=== PATIENT | male | born 1960 | race Asian ===

== ENCOUNTER 2016-12-31 11:09 | Inpatient (IN) | payer MEDICAID ==
[~2016-12-31] VITALS: Ht 165.1 cm; Wt 68.0 kg
[~2016-12-31 11:09] MED LIST: ACETAMINOPHEN-1 EAC1 ORAL; ASPIR 8181 MG ORAL; CIPRO500 MG PO; COLACE100 MG ORAL; FUROSEMIDE20 M1 ORAL; GLIMEPIRIDE1 MG ORAL; IRON325 M2 PO; LIPITOR10 MG ORAL; METOPROLOL TART50 MG ORAL; METRONIDAZOLE500 MG ORAL
[2016-12-31 11:21] VITALS: BP 107/72
[2016-12-31] MEDS ORDERED: DOCUSATE SODIU100 MG ORAL (11:41)
[2016-12-31] MEDS ORDERED: FERROUS SULFAT325 MG ORAL (11:43)
[2016-12-31 11:45] LABS: BASOPHILS % (AUTO) 0.5 % (0.0-2.0); EOSINOPHILS % (AUTO) 0.2 % (0.0-3.0); MEAN CORPUSCULAR HGB CONC 33.6 G/DL (32.0-36.0); MEAN CORPUSCULAR VOLUME 89 FL (80-99); MEAN PLATELET VOLUME 6.2 FL (6.5-10.1); NEUTROPHILS % (AUTO) 75.2 % (45.0-75.0); PLATELET COUNT 189 K/UL (150-450); RED BLOOD COUNT 4.19 M/UL (4.70-6.10); RED CELL DISTRIBUTION WIDTH 11.6 % (11.6-14.8); WHITE BLOOD COUNT 12.3 K/UL (4.8-10.8)
[2016-12-31] MEDS ORDERED: Oxycodone/Acetaminophen 5-325 ORAL ONE (11:45)
[2016-12-31] MEDS ORDERED: LISINOPRIL20 MG ORAL (11:47)
[2016-12-31] MEDS ORDERED: METOPROLOL SUCC50 MG ORAL (11:47)
[2016-12-31] MEDS ORDERED: FUROSEMIDE40 MG ORAL (11:47)
--- NOTE | 2016-12-31 11:47 | Emergency Room Report ---
History of Present Illness General Chief Complaint: Chest Pain Source: Patient, Family Member, EMS Present Illness HPI 56YOM with 1 week right sided pleuritic chest pain, worse with breathing. Assoc with cough and subjective chills recently. Pain only on breathing, not at rest. Doesnt radiate. History of CABG a few years ago, CHF. Took lasix/ spironolactone earlier today. Takes ASA daily. Allergies: Coded Allergies: No Known Allergies (Unverified , 09/03/15) Patient History Past Medical History: CAD, CHF Past Surgical History: CABG Pertinent Family History: none Social History: Denies: alcohol use, drug use, smoking Immunizations: UTD Reviewed Nursing Documentation: PMH: Agreed, PSxH: Agreed Nursing Documentation-PMH Past Medical History: No History, Except For Hx Cardiac Problems: Yes - CABG 08/31/2015 Hx Hypertension: Yes Hx Diabetes: Yes Review of Systems All Other Systems: negative except mentioned in HPI Physical Exam Vital Signs Date Time Temp Pulse Resp B/P Pulse Ox O2 Delivery O2 Flow Rate FiO2 12/31/16 11:08 98.4 100 22 107/72 98 Room Air [id number] EP Interpretation: reviewed, abnormal General Appearance: normal inspection, well appearing, no apparent distress, alert, GCS 15, non-toxic Head: normocephalic, atraumatic Eyes: bilateral eye EOMI, bilateral eye PERRL ENT: normal ENT inspection, hearing grossly normal, normal voice Neck: normal inspection, full range of motion, supple, no bony tend Respiratory: normal inspection, lungs clear, normal breath sounds, no respiratory distress, no retraction, no wheezing, crackles, other - Significant ttp to right chest Cardiovascular #1: regular rate, rhythm, no edema Gastrointestinal: normal inspection, normal bowel sounds, soft, no guarding, no hernia, other - + RUQ and epigastric ttp. with guarding. No rebound Genitourinary: no CVA tenderness Musculoskeletal: normal inspection, back normal, normal range of motion, Oanh' s Sign negative Neurologic: normal inspection, alert, responsive, speech normal Psychiatric: normal inspection, judgement/insight normal, mood/affect normal Skin: normal inspection Lymphatic: normal inspection Medical Decision Making Diagnostic Impression: Primary Impression: RUQ pain ER Course 56 YO M with "right sided pain" is actually more RUQ and epigastric pain vs chest pain/pleurisy +RUQ ttp with guarding Leuks: 12k. Elevated bili, LFTs, lipase Possible stone in pancreatic head Ultrasound pending Empiric Abx given Blood Cx pending NPO Analgesia provided Endorsed to Dr Osuna for med/surg bed at 1254pm Endorsed to Dr Fsih at 2pm to followup Abd sono and if acute cholecystitis to consult surgery as necessary EKG Diagnostic Results Rate: normal Rhythm: NSR ST Segments: no acute changes ASA given to the pt in ED: No Rhythm Strip Diag. Results EP Interpretation: yes Rate: 96 Rhythm: NSR, no PVC's, no ectopy Chest X-Ray Diagnostic Results EP Interpretation: Yes Findings: no consolidation, no effusion, no pneumothorax, other - +cardiomegaly Number of Views: 1 Last Vital Signs Date Time Temp Pulse Resp B/P Pulse Ox O2 Delivery O2 Flow Rate FiO2 12/31/16 11:21 100 22 Room Air 12/31/16 11:21 98.4 107/72 98 Status: improved Disposition: ADMITTED INPATIENT Condition: Serious Referrals: NON PHYSICIAN (PCP) NOEMY DESAI M.D. Dec 31, 2016 11:47
[2016-12-31] MEDS ORDERED: SPIRONOLACTONE25 MG ORAL (11:48)
[2016-12-31] MEDS ORDERED: FLAGYL500 MG ORAL (11:51)
[2016-12-31] MEDS ORDERED: GABAPENTIN300 MG ORAL (11:53)
[2016-12-31] MEDS ORDERED: LANTUS SOL100 UNIT/1 SUBQ (11:56)
[2016-12-31] MEDS ORDERED: Famotidine 20 MG/ 2ML VIAL IVP ONE (12:00)
[2016-12-31] MEDS ORDERED: TYLENOL325 MG ORAL (12:01)
[2016-12-31] MEDS ORDERED: PRED FORTE1 ML RIGHT EYE (12:05)
[2016-12-31] MEDS ORDERED: OMEPRAZOLE20 M2 ORAL (12:06)
--- NOTE | 2016-12-31 12:08 | Diagnostic Imaging Report ---
Indication: PAIN Technique: One view of the chest Comparison: 09/03/2015 Findings: Inspiration is suboptimal. There is atelectasis at the left lung base. Lungs and pleural space are otherwise clear. Previously demonstrated large left pleural effusion is no longer evident Impression: No acute process
[2016-12-31] MEDS ORDERED: cefTRIAXone 1 GM in NS 55 ML IVPB ONE (12:15)
[2016-12-31] MEDS ORDERED: Azithromycin 500 MG in NS 275 ML IV ONE (12:15)
[2016-12-31] MEDS ORDERED: Azithromycin Inj IV ONE (12:20)
[2016-12-31 12:29] VITALS: BP 130/79
[2016-12-31 12:31] LABS: TROPONIN I < 0.30 ng/mL (<=0.30)
[2016-12-31 12:35] LABS: ALANINE AMINOTRANSFERASE 134 U/L (3-41); ALBUMIN/GLOBULIN RATIO 0.9 (1.0-2.7); ANION GAP 19 (5-15); ASPARTATE AMINO TRANSFERASE 299 U/L (5-40); CARBON DIOXIDE 21 mEQ/L (20-30); CHLORIDE 95 mEQ/L (98-107); CREATININE 2.6 mg/dL (0.7-1.2); GLOMERULAR FILTRATION RATE 25.7 mL/min (>60); HEMOLYSIS 2; SODIUM 135 mEQ/L (135-145); TOTAL PROTEIN 7.4 g/dL (6.6-8.7)
[2016-12-31 12:45] LABS: CKMB < 1.5 ng/mL (< 6.7)
[2016-12-31 13:30] VITALS: BP 124/74
[2016-12-31 14:27] VITALS: BP 142/92
[2016-12-31 15:30] VITALS: BP 120/80
[2016-12-31 16:30] VITALS: BP 133/77
[2016-12-31] MEDS ORDERED: Mylanta II UD 30ml ORAL PRN (16:45)
[2016-12-31] MEDS ORDERED: Promethazine/Codeine 5ml UD ORAL PRN (16:45)
[2016-12-31] MEDS ORDERED: Morphine Sulfate 2mg/ml Inj IVP PRN (16:45)
[2016-12-31] MEDS ORDERED: Miralax 17gm pkt ORAL PRN (16:45)
[2016-12-31] MEDS ORDERED: Nitroglycerin Subl 0.4mg tab (Bottle Of 25) SL PRN (16:45)
[2016-12-31] MEDS ORDERED: Zosyn 3.375gm inj ONE (17:57)
[2016-12-31] MEDS: Furosemide 40mg tab ORAL SCH (18:05)
[2016-12-31] MEDS: D5 1/2NS 1,000 ML IV SCH (18:05)
[2016-12-31] MEDS: Piperacillin/Tazobactam 3.375 GM in NS 110 ML IVPB SCH (18:06)
[2016-12-31] MEDS: metroNIDAZOLE 500mg tab ORAL SCH (18:06)
[2016-12-31 21:34] LABS: PHOSPHORUS 3.6 mg/dL (2.5-4.8); URIC ACID 13.9 mg/dL (3.0-7.5)
--- NOTE | 2016-12-31 21:36 | History and Physical ---
History of Present Illness General Reason for Hospitalization: Chest Pain Present Illness Allergies: Coded Allergies: No Known Allergies (Unverified , 09/03/15) Medication History Scheduled Aspirin* (Aspir 81*), 81 MG ORAL DAILY, (Reported) Atorvastatin Calcium* (Lipitor*), 10 MG ORAL DAILY, (Reported) Ciprofloxacin* (Cipro*), 500 MG PO BID, (Reported) Ferrous Sulfate* (Ferrous Sulfate*), 325 MG ORAL TWICE A DAY, (Reported) Furosemide* (Lasix*), 40 MG ORAL TWICE A DAY, (Reported) Gabapentin* (Gabapentin*), 300 MG ORAL BID, (Reported) Insulin Glargine (Lantus), 20 UNITS SUBQ EVERY MORNING, (Reported) Lisinopril (Lisinopril*), 20 MG ORAL DAILY, (Reported) Metoprolol Succinate* (Metoprolol Succinate*), 50 MG ORAL DAILY, (Reported) Metronidazole* (Flagyl*), 500 MG ORAL EVERY 8 HOURS, (Reported) Omeprazole (Omeprazole), 20 MG ORAL DAILY, (Reported) Prednisolone Acetate (Pred Forte), 1 DRP RIGHT EYE QID, (Reported) Spironolactone* (Aldactone*), 25 MG ORAL DAILY, (Reported) Scheduled PRN Acetaminophen (Tylenol), 650 MG ORAL Q6H PRN for For Pain, (Reported) Docusate Sodium* (Docusate Sodium*), 100 MG ORAL DAILY PRN for Constipation, ( Reported) Discontinued Medications Acetaminophen With Codeine (T#3) (Tylenol #3 Tab*), 1 TAB ORAL Q4H PRN for For Pain, (Reported) Discontinued Reason: Therapy completed Furosemide* (Lasix*), 20 MG ORAL DAILY, (Reported) Discontinued Reason: Prescription changed Glimepiride* (Glimepiride*), 1 MG ORAL BEFORE BREAKFAST, (Reported) Discontinued Reason: Pt stopped taking med Metoprolol Tartrate* (Metoprolol Tartrate*), 50 MG ORAL DAILY, (Reported) Discontinued Reason: Medication dose changed Patient History Healthcare decision maker Resuscitation status Advanced Directive on File Physical Exam Last 24 Hour Vital Signs Date Time Temp Pulse Resp B/P Pulse Ox O2 Delivery O2 Flow Rate FiO2 12/31/16 17:00 98.4 76 16 133/77 96 Room Air 12/31/16 16:30 76 16 133/77 96 Room Air 12/31/16 15:30 78 21 120/80 96 Room Air 12/31/16 14:27 85 20 142/92 100 Room Air 12/31/16 13:30 84 18 124/74 99 Room Air 12/31/16 12:29 87 21 130/79 98 Room Air 12/31/16 12:27 98.4 12/31/16 11:21 100 22 Room Air 12/31/16 11:21 98.4 100 22 107/72 98 Room Air 12/31/16 11:08 98.4 100 22 107/72 98 Room Air Laboratory Tests Test 12/31/16 11:15 12/31/16 12:00 12/31/16 20:30 White Blood Count 12.3 K/UL (4.8-10.8) H Red Blood Count 4.19 M/UL (4.70-6.10) L Hemoglobin 12.6 G/DL (14.2-18.0) L Hematocrit 37.4 % (42.0-52.0) L Mean Corpuscular Volume 89 FL (80-99) Mean Corpuscular Hemoglobin 30.0 PG (27.0-31.0) Mean Corpuscular Hemoglobin Concent 33.6 G/DL (32.0-36.0) Red Cell Distribution Width 11.6 % (11.6-14.8) Platelet Count 189 K/UL (150-450) Mean Platelet Volume 6.2 FL (6.5-10.1) L Neutrophils (%) (Auto) 75.2 % (45.0-75.0) H Lymphocytes (%) (Auto) 13.0 % (20.0-45.0) L Monocytes (%) (Auto) 11.0 % (1.0-10.0) H Eosinophils (%) (Auto) 0.2 % (0.0-3.0) Basophils (%) (Auto) 0.5 % (0.0-2.0) Sodium Level 135 mEQ/L (135-145) Potassium Level 4.0 mEQ/L (3.4-4.9) Chloride Level 95 mEQ/L (98-107) L Carbon Dioxide Level 21 mEQ/L (20-30) Anion Gap 19 (5-15) H Blood Urea Nitrogen 52 mg/dL (7-23) H Creatinine 2.6 mg/dL (0.7-1.2) H Estimat Glomerular Filtration Rate 25.7 mL/min (>60) Glucose Level 219 mg/dL (74-106) H Calcium Level 9.0 mg/dL (8.6-10.2) Total Bilirubin 1.5 mg/dL (0.0-1.2) H Direct Bilirubin 1.0 mg/dL (0.1-0.3) H Aspartate Amino Transf (AST/SGOT) 299 U/L (5-40) H Alanine Aminotransferase (ALT/SGPT) 134 U/L (3-41) H Alkaline Phosphatase 240 U/L (40-129) H Total Creatine Kinase 40 U/L (38-174) Pending Creatine Kinase MB < 1.5 ng/mL (< 6.7) Creatine Kinase MB Relative Index Troponin I < 0.30 ng/mL (<=0.30) Pro-B-Type Natriuretic Peptide 545 pg/mL (0-125) H Total Protein 7.4 g/dL (6.6-8.7) Albumin 3.6 g/dL (3.5-5.2) Globulin 3.8 g/dL Albumin/Globulin Ratio 0.9 (1.0-2.7) L Lipase 61 U/L (< 60) H Plasma/Serum Osmolality Pending Uric Acid Pending Phosphorus Level Pending Magnesium Level Pending Thyroid Stimulating Hormone (TSH) Pending Free Thyroxine Pending Free Triiodothyronine Pending Cortisol Pending Height (Feet): 5 Height (Inches): 5.00 Weight (Pounds): 150 Medications Current Medications Medications (Trade) Dose Ordered Sig/Aleksandr Route PRN Reason Start Time Stop Time Status Last Admin Dose Admin Acetaminophen (Tylenol) 650 mg Q4H PRN ORAL fever 12/31/16 16:45 01/30/17 16:44 Al Hydroxide/Mg Hydroxide (Mylanta II) 30 ml Q6H PRN ORAL dyspepsia 12/31/16 16:45 01/30/17 16:44 Aspirin (Ecotrin) 81 mg DAILY ORAL 01/01/17 09:00 01/31/17 08:59 UNV Atorvastatin Calcium (Lipitor) 10 mg DAILY ORAL 01/01/17 09:00 01/31/17 08:59 UNV Dextrose STAT PRN IV Hypoglycemia 12/31/16 16:45 01/30/17 16:44 Dextrose/Sodium Chloride (D5 0.45% NS) 1,000 ml @ 75 mls/hr [id number] IV 12/31/16 18:00 01/30/17 17:59 12/31/16 18:05 Diphenhydramine HCl (Benadryl) 25 mg Q6H PRN ORAL Itching/Pruritis 12/31/16 16:45 01/30/17 16:44 Furosemide (Lasix) 40 mg TWICE A DAY ORAL 12/31/16 18:00 01/30/17 17:59 12/31/16 18:05 Gabapentin (Neurontin) 300 mg BID ORAL 01/01/17 09:00 01/31/17 08:59 UNV Heparin Sodium (Porcine) (Heparin 5000 units/ml) 5,000 units EVERY 12 HOURS SUBQ 12/31/16 21:00 01/30/17 20:59 Metoprolol Succinate (Toprol XL) 50 mg DAILY ORAL 01/01/17 09:00 01/31/17 08:59 UNV Metronidazole 500 mg 500 mg EVERY 8 HOURS ORAL 12/31/16 18:30 01/07/17 18:29 12/31/16 18:06 Morphine Sulfate (Morphine Sulfate) 2 mg EVERY 4 HOURS PRN IVP severe Pain (Pain Scale 7-10) 12/31/16 16:45 01/07/17 16:44 Nitroglycerin (Ntg) 0.4 mg Q5M X 3 DOSES PRN SL Prn Chest Pain 12/31/16 16:45 01/30/17 16:44 Ondansetron HCl (Zofran) 4 mg Q6H PRN IVP Nausea & Vomiting 12/31/16 16:45 01/30/17 16:44 Piperacillin Sod/ Tazobactam Sod/ Sodium Chloride (Zosyn/Sodium Chloride) 110 ml @ 27.5 mls/hr EVERY 8 HOURS IVPB 12/31/16 18:30 01/07/17 18:29 12/31/16 18:06 Polyethylene Glycol (Miralax) 17 gm HSPRN PRN ORAL Constipation 12/31/16 16:45 01/30/17 16:44 Promethazine HCl/ Codeine (Phenergan with Codeine) 5 ml Q4H PRN ORAL For Cough 12/31/16 16:45 01/30/17 16:44 Temazepam (Restoril) 15 mg HSPRN PRN ORAL Insomnia 12/31/16 16:45 01/07/17 16:44 CHRIS YEE Dec 31, 2016 21:36
[2016-12-31] MEDS: Heparin 5000 units/ml inj SUBQ SCH (22:04)
[2017-01-01] VITALS: BP 120/72
[2017-01-01 04:00] VITALS: BP 124/78
[2017-01-01] MEDS ORDERED: Zosyn 3.375gm inj ONE (05:18)
[2017-01-01] MEDS: D5 1/2NS 1,000 ML IV SCH ×2 (05:25→20:40)
[2017-01-01] MEDS: metroNIDAZOLE 500mg tab ORAL SCH ×3 (05:25→22:03)
[2017-01-01] MEDS: Piperacillin/Tazobactam 3.375 GM in NS 110 ML IVPB SCH ×3 (05:25→22:04)
[2017-01-01 07:09] LABS: BASOPHILS % (AUTO) 0.9 % (0.0-2.0); EOSINOPHILS % (AUTO) 0.6 % (0.0-3.0); LYMPHOCYTES % (AUTO) 18.4 % (20.0-45.0); MEAN CORPUSCULAR HEMOGLOBIN 30.1 PG (27.0-31.0); MEAN CORPUSCULAR HGB CONC 33.5 G/DL (32.0-36.0); MEAN CORPUSCULAR VOLUME 90 FL (80-99); MEAN PLATELET VOLUME 6.1 FL (6.5-10.1); MONOCYTES % (AUTO) 12.2 % (1.0-10.0); NEUTROPHILS % (AUTO) 67.8 % (45.0-75.0); PLATELET COUNT 182 K/UL (150-450); RED BLOOD COUNT 3.92 M/UL (4.70-6.10); RED CELL DISTRIBUTION WIDTH 11.7 % (11.6-14.8); WHITE BLOOD COUNT 8.3 K/UL (4.8-10.8)
[2017-01-01 07:43] LABS: CALCIUM 9.2 mg/dL (8.6-10.2); CREATININE 3.1 mg/dL (0.7-1.2); GLOMERULAR FILTRATION RATE 20.9 mL/min (>60); POTASSIUM 4.4 mEQ/L (3.4-4.9); TOTAL PROTEIN 7.2 g/dL (6.6-8.7)
[2017-01-01 07:46] LABS: CORTISOL LC 10.7 ug/dL (.)
[2017-01-01 07:58] LABS: BILIRUBIN,DIRECT 2.9 mg/dL (0.1-0.3)
[2017-01-01 08:04] LABS: APPEARANCE,URINE SLIGHTLY CLOUDY; KETONES,URINE NEGATIVE (NEGATIVE); LEUKOCYTE ESTERASE ,URINE 1+ (NEGATIVE); NITRITE,URINE NEGATIVE (NEGATIVE); PH,URINE 5 (4.5-8.0); PROTEIN,URINE 3+ (NEGATIVE); UROBILINOGEN,URINE 1 MG/DL (0.0-1.0)
[2017-01-01 08:16] LABS: CREATININE, RANDOM URINE 99.4 mg/dL
[2017-01-01 08:35] LABS: BACTERIA,URINE FEW /HPF; SQUAMOUS EPITHELIAL CELL,UR FEW /LPF (NONE/OCC)
[2017-01-01 08:36] LABS: HYALINE CASTS, URINE 0-2 /LPF
[2017-01-01] MEDS: Aspirin EC 81mg tab ORAL SCH (09:21)
[2017-01-01] MEDS: Furosemide 40mg tab ORAL SCH ×2 (09:22→18:14)
[2017-01-01] MEDS: Heparin 5000 units/ml inj SUBQ SCH ×2 (09:24→21:00)
[2017-01-01 09:25] LABS: ICTOTEST POSITIVE
--- NOTE | 2017-01-01 09:37 | Consultation ---
Consult Note Consult Note ID CONSULT: Dict# [id number] Assessment/Plan ASSESSMENT: 56 y/o male with: // Probable acute cholecystitis - GI, surgical eval pending - elevated LFTs, improved, (+) Sun's - US: pending // Leukocytosis, mild - resolved, afebrile // Atypical chest pain, possibly biliary - trop(-) x1 - TTE: pending - h/o CAD SP CABG // ARF ?CKD - worse // DM2 // NKDA // Full Code PLAN: - continue empiric zosyn, flagyl d# 1 - f/u cultures - f/u abdo US - f/u TTE - f/u GI, surgical eval - monitor CBC, temperatures - monitor CMP Thanks! Will follow ROBEL LOWERY Jan 01, 2017 09:37
--- NOTE | 2017-01-01 10:12 | Diagnostic Imaging Report ---
Indication:Abdominal pain Technique: Grayscale and duplex Doppler imaging of the abdomen performed. Comparison: None Findings: There is thickening of the wall the gallbladder. No obvious gallstones are identified. There is likely sludge in the gallbladder lumen. CBD is 6 mm. There is a small cyst one CM in the midpole right kidney. The liver, demonstrated part of the pancreas, aorta and IVC, both kidneys, spleen appear unremarkable. There is no biliary ductal dilatation identified. Doppler evaluation of the main portal vein shows patency. There is no ascites. No hydronephrosis seen. Impression: Thickening of the gallbladder wall. Findings are nonspecific. Please correlate clinically.
[2017-01-01 12:00] VITALS: BP 145/87
[2017-01-01] MEDS: NovoLOG Insulin Flexpen SUBQ SCH ×3 (12:37→23:04)
[2017-01-01 16:00] VITALS: BP 156/96
--- NOTE | 2017-01-01 16:38 | Consultation ---
DATE OF CONSULTATION: 01/01/2017 INFECTIOUS DISEASE CONSULTATION CONSULTING PHYSICIAN: Darrin Dorsey M.D. REFERRING PHYSICIAN: Aleyda Osuna M.D. REASON FOR CONSULTATION: Acute cholecystitis. HISTORY OF PRESENT ILLNESS: This is a 56-year-old diabetic male with history of coronary artery disease, admitted on 12/31/2016 with an atypical chest pain. Troponin is negative x1, and chest x-ray shows no acute findings. LFTs are elevated and he has positive Sun sign. An abdominal ultrasound is pending to rule out cholecystitis. GI and surgical evaluation is also pending. Associated mild leukocytosis now resolved and evidence of renal insufficiency, question acute versus chronic. LFTs are improved this morning. He has been started on empiric Zosyn and Flagyl, and ID now consulted to assist in management. PAST MEDICAL HISTORY: 1. Diabetes. 2. Hypertension. 3. Coronary artery disease. PAST SURGICAL HISTORY: Coronary artery bypass grafting. FAMILY HISTORY: Noncontributory. SOCIAL HISTORY: No active tobacco, alcohol, or illicit drug abuse. ALLERGIES: No known drug allergies. MEDICATIONS: 1. Zosyn day # 1. 2. Flagyl day #1. 3. Insulin. 4. Metoprolol. 5. Lipitor. 6. Gabapentin. 7. Heparin. 8. Lasix. REVIEW OF SYSTEMS: As per history of present illness. Ten systems reviewed. All pertinent positives and negatives noted. PHYSICAL EXAMINATION: VITAL SIGNS: Maximum temperature 98.4, blood pressure 124/78, heart rate in the 80s, respiratory rate 20, and saturating 97% on room air. GENERAL: No apparent distress. Nontoxic appearing. CARDIOVASCULAR: Regular rate and rhythm. No murmurs. PULMONARY: Clear to auscultation bilaterally. ABDOMINAL: Bowel sounds present. Soft and nondistended. Right upper quadrant tenderness to palpation. Sun sign positive. EXTREMITIES: No edema. SKIN: No rash. NEUROLOGICAL: Alert and oriented x3. Nonfocal. LABORATORY DATA: White blood cell count 8.3, decreased from 12.1; hemoglobin 11.8; and platelets 182,000. Sodium 137; potassium 4.4; chloride 96; bicarbonate 23; BUN 49; and creatinine 3.1 increased from 2.6. Uric acid 13.9. AST of 143, ALT 143, and alkaline phosphatase 344. 3.4. Albumin 3.7. Troponin negative x1. MICROBIOLOGY: From 01/01/2017, sputum culture pending. IMAGIN. 12/31/2016, chest x-ray, no acute findings. 2. 01/01/2017, abdominal ultrasound pending. 3. 01/01/2017, echocardiogram pending. ASSESSMENT: 1. Probable acute cholecystitis. Gastrointestinal and surgical evaluations are pending. LFTs are improved and he has a positive Sun's sign. Ultrasound is pending. 2. Leukocytosis, mild, now resolved and afebrile. 3. Atypical chest pain, possibly biliary. Troponin is negative x1. He does have a history of coronary artery disease, status post coronary artery bypass graft, and echocardiogram is pending. 4. Acute renal failure, question chronic kidney disease, worsening. 5. Diabetes type 2. 6. No known drug allergies. 7. Full Code. PLAN: 1. Continue empiric Zosyn and Flagyl day #1. 2. Follow up cultures. 3. Follow up abdominal ultrasound. 4. Follow up echocardiogram. 5. Follow up GI and surgical evaluations. 6. Monitor CBC and temperatures. 7. Monitor CMP. Thank you. We will follow. Darrin Dorsey M.D. DR: ABRAN JOB#: [id number] CC: Aleyda Osuna M.D.; Fax#: [phone] Alborzi, M.D ; Fax#: [phone]
[2017-01-01 20:00] VITALS: BP 136/88
--- NOTE | 2017-01-01 20:14 | Cardiology Report ---
APPROVED REPORT EXAM: Two-dimensional and M-mode echocardiogram with Doppler and color Doppler. INDICATION LV function M-Mode DIMENSIONS IVSd0.9 (0.7-1.1cm)Left Atrium (MM)3.9 (1.6-4.0cm) LVDd4.6 (3.5-5.6cm)Aortic Root3.0 (2.0-3.7cm) PWd1.0 (0.7-1.1cm)Aortic Cusp Exc.1.8 (1.5-2.0cm) LVDs3.0 (2.5-4.0cm) PWs1.6 cm Normal left ventricular chamber size, systolic function and wall motion. Left ventricular ejection fraction estimated to be 60 %. Mild left ventricular hypertrophy by 2-D. Anterior Echo-free space, may be due to pericardial fat or effusion. All other cardiac chamber sizes are within normal limits. Mild focal aortic valve sclerosis with adequate cusp excursion cannot exclude bicuspiod valve Mildly thickened mitral valve leaflets with normal excursion. Mitral annulus and aortic root calcification. Normal pulmonic valve structure. Normal tricuspid valve structure. IVC at normal size with physiologic collapse. A color flow and spectral Doppler study was performed and revealed: Trace aortic regurgitation. Trace to mild mitral regurgitation. Mitral diastolic velocities suggest reduced left ventricular relaxation c/w mild LV diastolic dysfunction (Grade I). Trace tricuspid regurgitation. Tricuspid systolic velocities suggests peak right ventricular systolic pressure of 18 mmHg. No pulmonic regurgitation present.
--- NOTE | 2017-01-01 21:26 | General Progress Note ---
Progress Note Progress Note [id number] full note dictated GERMÁN HERNANDEZ Jan 01, 2017 21:26
--- NOTE | 2017-01-01 22:19 | Pulmonology Progress Note ---
Subjective Allergies: Coded Allergies: No Known Allergies (Unverified , 09/03/15) Objective Last 24 Hour Vital Signs Date Time Temp Pulse Resp B/P Pulse Ox O2 Delivery O2 Flow Rate FiO2 01/01/17 20:00 98.2 88 19 136/88 94 Room Air 01/01/17 16:00 96.6 90 20 156/96 95 Room Air 01/01/17 12:00 98.1 89 145/87 Room Air 01/01/17 09:22 84 124/78 01/01/17 08:00 97.9 84 20 97 Room Air 01/01/17 04:00 97.9 82 18 124/78 96 Room Air 01/01/17 00:00 98.1 88 18 120/72 96 Room Air 12/31/16 23:04 98.4 12/31/16 23:03 98.4 Intake and Output 12/31/16 01/01/17 19:00 07:00 Intake Total 330 ml 525 ml Balance 330 ml 525 ml Intake IV Total 330 ml 525 ml # Voids 1 Laboratory Tests 01/01/17 05:55: White Blood Count 8.3, Red Blood Count 3.92L, Hemoglobin 11.8L, Hematocrit 35.1L , Mean Corpuscular Volume 90, Mean Corpuscular Hemoglobin 30.1, Mean Corpuscular Hemoglobin Concent 33.5, Red Cell Distribution Width 11.7, Platelet Count 182, Mean Platelet Volume 6.1L, Neutrophils (%) (Auto) 67.8, Lymphocytes ( %) (Auto) 18.4L, Monocytes (%) (Auto) 12.2H, Eosinophils (%) (Auto) 0.6, Basophils (%) (Auto) 0.9, Activated Partial Thromboplast Time 31, Sodium Level 137, Potassium Level 4.4, Chloride Level 96L, Carbon Dioxide Level 23, Anion Gap 18H, Blood Urea Nitrogen 49H, Creatinine 3.1H, Estimat Glomerular Filtration Rate 20.9, Glucose Level 186H, Calcium Level 9.2, Total Bilirubin 3.4H, Direct Bilirubin 2.9H, Aspartate Amino Transf (AST/SGOT) 143H, Alanine Aminotransferase (ALT/SGPT) 143H, Alkaline Phosphatase 344H, Total Protein 7.2, Albumin 3.7, Globulin 3.5, Albumin/Globulin Ratio 1.0, Amylase Level 97 01/01/17 06:30: Urine Color Yellow, Urine Appearance Slightly cloudy, Urine pH 5, Urine Specific [place] 1.015, Urine Protein 3+H, Urine Glucose (UA) Negative, Urine Ketones Negative, Urine Occult Blood 2+H, Urine Nitrite Negative, Urine Bilirubin 1+H, Urine Ictotest Positive, Urine Urobilinogen 1H, Urine Leukocyte Esterase 1+H, Urine RBC 5-10H, Urine WBC 5-10H, Urine Squamous Epithelial Cells Few, Urine Bacteria Few, Urine Hyaline Casts 0-2H, Urine Eosinophils None seen, Urine Osmolality [Pending], Urine Random Creatinine [Pending], Urine Random Microalbumin [Pending], Urine Random Total Protein 89, Urine Random Sodium 51, Urine Random Chloride 43, Urine Creatinine 99.4, Urine Microalbumin/Creatinine Ratio [Pending], Urine Potassium Timed 23 Current Medications Medications (Trade) Dose Ordered Sig/Aleksandr Route PRN Reason Start Time Stop Time Status Last Admin Dose Admin Acetaminophen (Tylenol) 650 mg Q4H PRN ORAL fever 12/31/16 16:45 01/30/17 16:44 12/31/16 22:05 Al Hydroxide/Mg Hydroxide (Mylanta II) 30 ml Q6H PRN ORAL dyspepsia 12/31/16 16:45 01/30/17 16:44 Aspirin (Ecotrin) 81 mg DAILY ORAL 01/01/17 09:00 01/31/17 08:59 01/01/17 09:21 Atorvastatin Calcium (Lipitor) 10 mg QHS ORAL 12/31/16 22:00 01/30/17 21:59 01/01/17 20:53 Clonidine HCl (Catapres) 0.1 mg Q8H PRN ORAL if Systolic BP >150mmHg 01/01/17 18:30 01/31/17 18:29 Dextrose (Dextrose 50%) STAT PRN IV Hypoglycemia 01/01/17 07:15 01/31/17 07:14 Dextrose/Sodium Chloride (D5 0.45% NS) 1,000 ml @ 75 mls/hr [id number] IV 12/31/16 18:00 01/30/17 17:59 01/01/17 05:25 Diphenhydramine HCl (Benadryl) 25 mg Q6H PRN ORAL Itching/Pruritis 12/31/16 16:45 01/30/17 16:44 01/01/17 18:20 Gabapentin (Neurontin) 300 mg BID ORAL 12/31/16 22:00 01/30/17 21:59 01/01/17 18:14 Heparin Sodium (Porcine) (Heparin 5000 units/ml) 5,000 units EVERY 12 HOURS SUBQ 12/31/16 21:00 01/30/17 20:59 01/01/17 09:24 Insulin Aspart (NovoLOG) BEFORE MEALS AND HS SUBQ 01/01/17 11:30 01/31/17 11:29 01/01/17 17:58 Metoprolol Succinate (Toprol XL) 50 mg DAILY ORAL 01/01/17 09:00 01/31/17 08:59 01/01/17 09:22 Metronidazole 500 mg 500 mg EVERY 8 HOURS ORAL 12/31/16 18:30 01/07/17 18:29 01/01/17 22:03 Morphine Sulfate (Morphine Sulfate) 2 mg EVERY 4 HOURS PRN IVP severe Pain (Pain Scale 7-10) 12/31/16 16:45 01/07/17 16:44 Nitroglycerin 0.4 mg 0.4 mg Q5M X 3 DOSES PRN SL Prn Chest Pain 12/31/16 16:45 01/30/17 16:44 Ondansetron HCl (Zofran) 4 mg Q6H PRN IVP Nausea & Vomiting 12/31/16 16:45 01/30/17 16:44 Piperacillin Sod/ Tazobactam Sod/ Sodium Chloride (Zosyn/Sodium Chloride) 110 ml @ 27.5 mls/hr EVERY 8 HOURS IVPB 12/31/16 18:30 01/07/17 18:29 01/01/17 22:04 Polyethylene Glycol (Miralax) 17 gm HSPRN PRN ORAL Constipation 12/31/16 16:45 01/30/17 16:44 Promethazine HCl/ Codeine (Phenergan with Codeine) 5 ml Q4H PRN ORAL For Cough 12/31/16 16:45 01/30/17 16:44 Temazepam (Restoril) 15 mg HSPRN PRN ORAL Insomnia 12/31/16 16:45 01/07/17 16:44 CHRIS YEE Jan 01, 2017 22:19
--- NOTE | 2017-01-01 22:48 | Consultation ---
DATE OF CONSULTATION: GASTROENTEROLOGY CONSULTATION CHIEF COMPLAINT: Nausea, vomiting, and abdominal pain. HISTORY OF PRESENT ILLNESS: History is very limited given the patient mainly speaks, I think [place], came in with the right-sided abdominal pain, had abnormal liver function test, and GI consult was requested for evaluation. PAST MEDICAL HISTORY: 1. History of coronary artery disease and CABG. 2. Congestive heart failure. PAST SURGICAL HISTORY: History of CABG. MEDICATIONS: Please see medication reconciliation list. ALLERGIES: No known drug allergy. SOCIAL HISTORY: The patient denies any tobacco, alcohol, or drug abuse. FAMILY HISTORY: Noncontributory. REVIEW OF SYSTEMS: A 10-point review of systems was performed and pertinent positives in history of present illness. PHYSICAL EXAMINATION: VITAL SIGNS: Temperature 98.1 degrees, pulse 89, blood pressure 144/87, and respirations 20. HEENT: Normocephalic and atraumatic. Mild pale conjunctivae. NECK: Supple. No evidence of lymphadenopathy. CARDIOVASCULAR: Regular rate and rhythm. Plus S1 and S2. No obvious murmur. LUNGS: Clear breath sounds bilaterally. ABDOMEN: Positive bowel sounds. Soft. There is tenderness to palpation in the right upper quadrant. Some guarding. No rebound. Positive Sun sign. EXTREMITIES: No cyanosis, no clubbing, no edema. LABORATORY DATA: White count 8.3, hemoglobin 11.8, hematocrit 35, and platelet count 182,000. Chem-7, bilirubin jumped from 1.5 to 3.4, direct bilirubin of 2.9, AST of 143, ALT of 143, and alkaline phosphatase 344. Abdominal ultrasound showed common bile duct only 6 mm. There is thickening of the gallbladder wall. ASSESSMENT AND PLAN: Based on the exam, the patient most probably either has acute cholecystitis or choledocholithiasis and cholangitis. Plan to get an MRCP stat and if the patient has common bile duct stone, we will plan to do an endoscopic retrograde cholangiopancreatography tomorrow. Recommend surgical consultation. The patient also needs to be on antibiotics. We will order some. Osbaldo De Leon M.D. DR: CORY JOB#: [id number] CC:
[2017-01-02 00:30] VITALS: BP 123/71
[2017-01-02 04:00] VITALS: BP 128/68
[2017-01-02] MEDS: Piperacillin/Tazobactam 3.375 GM in NS 110 ML IVPB SCH ×3 (05:46→21:14)
[2017-01-02] MEDS: metroNIDAZOLE 500mg tab ORAL SCH ×3 (05:47→21:28)
[2017-01-02] MEDS: NovoLOG Insulin Flexpen SUBQ SCH ×4 (05:55→21:00)
[2017-01-02 06:10] LABS: EOSINOPHILS % (AUTO) 1.1 % (0.0-3.0); LYMPHOCYTES % (AUTO) 17.9 % (20.0-45.0); MEAN CORPUSCULAR HEMOGLOBIN 29.7 PG (27.0-31.0); MEAN CORPUSCULAR HGB CONC 32.9 G/DL (32.0-36.0); MEAN CORPUSCULAR VOLUME 90 FL (80-99); MEAN PLATELET VOLUME 5.7 FL (6.5-10.1); MONOCYTES % (AUTO) 8.2 % (1.0-10.0); NEUTROPHILS % (AUTO) 71.9 % (45.0-75.0); PLATELET COUNT 189 K/UL (150-450); RED BLOOD COUNT 4.06 M/UL (4.70-6.10); RED CELL DISTRIBUTION WIDTH 12.1 % (11.6-14.8); WHITE BLOOD COUNT 7.1 K/UL (4.8-10.8)
[2017-01-02 06:56] LABS: ALBUMIN/GLOBULIN RATIO 0.8 (1.0-2.7); CALCIUM 9.3 mg/dL (8.6-10.2); CREATININE 3.1 mg/dL (0.7-1.2); GLOMERULAR FILTRATION RATE 20.9 mL/min (>60); POTASSIUM 4.2 mEQ/L (3.4-4.9)
[2017-01-02 08:12] VITALS: BP 137/86
--- NOTE | 2017-01-02 08:27 | Diagnostic Imaging Report ---
Indication: Abdominal pain. Thickened gallbladder wall Technique: MRI of the abdomen was performed in a 1.5 Rani magnet. Pulse sequences obtained include coronal and axial T2 single shot fast spin echo breathhold and respiratory gated coronal T2 3-D M.R.C.P.; this data set was displayed in different projections or MIPs. In addition, multiple coronal oblique thin T2 weighted, fat saturated SE sequences obtained through the CBD. Comparison: None Findings: There is thickening of the gallbladder wall. Gallbladder is distended. Layering sludge versus tiny stones in the dependent portion of the gallbladder lumen noted. There is no intrahepatic or extrahepatic biliary ductal dilatation demonstrated. Trace bilateral pleural effusions are present. Tiny cyst noted within the right kidney. There is mild perinephric stranding which is nonspecific. Impression: No biliary ductal dilatation or evidence of choledocholithiasis. Abnormal moderate thickening of the gallbladder wall. Small stones versus sludge. Trace bilateral pleural effusions. Tiny right renal cyst Perinephric stranding nonspecific
--- NOTE | 2017-01-02 08:38 | Consultation ---
DATE OF CONSULTATION: 01/01/2017 NEPHROLOGY CONSULTATION CONSULTING PHYSICIAN: Molly Gambino M.D. REFERRING PHYSICIAN: Aleyda Osuna M.D. REASON FOR CONSULTATION: Acute versus chronic renal failure. HISTORY OF PRESENT ILLNESS: The patient is a 56-year-old very pleasant Sami male with past medical history significant for history of hypertension, diabetes, dyslipidemia, history of CABG, who presented to [facility] complaining of chest pain, which was not radiating and was associated with some nausea. No vomiting. Some mild shortness of breath, who had a complete workup for acute coronary syndrome. His first troponin was negative. The patient also found to have an abnormal kidney function, which I was consulted. The patient also was found to have mild elevation in LFT and white blood cell count. The patient was admitted with possible diagnosis of acute cholecystitis. I was called for management of renal disease and electrolyte imbalance. PAST MEDICAL HISTORY: Includin. Diabetes. 2. Hypertension. 3. Diabetic neuropathy. 4. History of CAD. PAST SURGICAL HISTORY: History of coronary artery bypass graft. FAMILY HISTORY: Noncontributory. SOCIAL HISTORY: Denies any history of current tobacco, alcohol, or drug use. ALLERGIES: No known drug allergies. CURRENT MEDICATIONS: Includin. Gabapentin. 2. Heparin. 3. Lipitor. 4. Insulin. 5. Flagyl. 6. Zosyn. 7. Lasix. REVIEW OF SYSTEMS: General: He denies any weight loss, weight gain, fever, chills, or night sweats. Head And Neck: Denies any dysphagia, odynophagia, blurry vision, headache, or neck stiffness. Pulmonary: No cough or sputum. No hemoptysis. Cardiovascular: He complained of chest pain as mentioned in history of present illness. Gastrointestinal: He has nausea. No vomiting. No melena or hematemesis. Complaining of epigastric and right upper quadrant pain. Genitourinary: Denies any dysuria, frequency, or hematuria. Musculoskeletal: He denies any weakness or numbness. PHYSICAL EXAMINATION: VITAL SIGNS: Blood pressure 124/78, pulse rate of 80, respiratory rate of 18, and temperature of 98 degrees. HEAD AND NECK: No JVP. No LAD. No thyromegaly. Extraocular movements are intact. Pupils are reactive to light and accommodation. LUNGS: Clear to auscultation. CARDIAC: Regular rate and rhythm. S1-S2. No murmur. No rub. ABDOMEN: Soft. Mild right upper quadrant tenderness and guarding. No rebound. EXTREMITIES: No edema. No clubbing. No cyanosis. LABORATORY DATA: The patient has WBC count of 12,000, hemoglobin of 12.6, hematocrit of 37, and platelet count of 189,000. Chemistry on admission the patient has sodium 135, potassium 4, 91 chloride, bicarbonate, BUN of , creatinine of 2.6, and glucose of 290, calcium of 9. Total bilirubin of 1.5. AST of 299, ALT of 134, alkaline phosphatase of 240. BNP is only 450. The patient had UA, which revealed specific gravity of 1.015. Protein , blood 2+, bilirubin 1+. WBC of 5 to 10, RBC 5 to 10. The patient had random urinary sodium of 51, pending, urine creatinine of 99, and urine protein of 89. The patient had a chest x-ray on admission, which revealed no acute process, had an abdominal ultrasound or it revealed thickening of the gallbladder . The patient had an echocardiogram, which revealed ejection fraction of 60%. ASSESSMENT: 1. Acute renal failure. The etiology of acute renal failure including acute tubular necrosis due to unstable hemodynamics. 2. The patient definitely has some degree of chronic kidney disease due to diabetes since he has a diabetic neuropathy, most likely has some degree of diabetic nephropathy and 1 g proteinuria although the patient has 3+ of blood in the urine. PLAN: 1. The patient to check the random urine protein/creatinine ratio to calculate the proteinuria. Check the fractional excretion of sodium. I would discontinue the Lasix. I would follow up with ultrasound of the kidney, which at still at this point is pending. We will check the postvoiding residual volume. I would continue with IV fluids at this point since the patient is NPO. I would adjust the dose of the antibiotics for the . We will check hemoglobin A1c . Continue monitoring sugar. Check the lipid profile. IV antibiotic. . Again, I would like to thank Dr. Osuna for allowing me to participate in the care of this patient. [facility] Knia Gambino DR: Familia JOB#: [id number] CC:
[2017-01-02] MEDS: Heparin 5000 units/ml inj SUBQ SCH ×2 (09:00→21:23)
[2017-01-02] MEDS: Aspirin EC 81mg tab ORAL SCH (09:00)
[2017-01-02] MEDS: D5 1/2NS 1,000 ML IV SCH ×2 (10:00→14:07)
--- NOTE | 2017-01-02 10:33 | Infectious Diseases Prog Note ---
Assessment/Plan Assessment/Plan ASSESSMENT: 56 y/o male with: // Probable acute cholecystitis - surgical eval pending - elevated LFTs, improved, (+) Sun's - MRCP: No biliary ductal dilatation or evidence of choledocholithiasis. Abnormal moderate thickening of the gallbladder wall. Small stones versus sludge. - US: Thickening of the gallbladder wall. // Leukocytosis, mild - resolved, afebrile // Atypical chest pain, possibly biliary - trop(-) x1 - TTE: EF 60%, grade I diastolic dysfunction, trace valvular disease - h/o CAD SP CABG // ARF, probable CKD - stable // DM2 // NKDA // Full Code PLAN: - continue zosyn, flagyl d# 2 - f/u cultures - f/u surgical eval - monitor CBC, temperatures - monitor CMP Subjective Allergies: Coded Allergies: No Known Allergies (Unverified , 09/03/15) Subjective remains afebrile RUQ pain Objective Vital Signs Last 24 Hour Vital Signs Date Time Temp Pulse Resp B/P Pulse Ox O2 Delivery O2 Flow Rate FiO2 01/02/17 09:49 97.7 01/02/17 08:50 82 137/86 01/02/17 08:12 97.7 82 20 137/86 94 Room Air 01/02/17 04:00 98.2 83 22 128/68 95 Room Air 01/02/17 00:30 97.2 94 18 123/71 99 Room Air 01/01/17 20:00 98.2 88 19 136/88 94 Room Air 01/01/17 16:00 96.6 90 20 156/96 95 Room Air 01/01/17 12:00 98.1 89 145/87 Room Air Height (Feet): 5 Height (Inches): 5.00 Weight (Pounds): 150 General Appearance: no acute distress Respiratory/Chest: no respiratory distress Cardiovascular: normal rate, regular rhythm Abdomen: normal bowel sounds, tender Laboratory Tests Test 01/02/17 05:10 White Blood Count 7.1 K/UL (4.8-10.8) Red Blood Count 4.06 M/UL (4.70-6.10) L Hemoglobin 12.1 G/DL (14.2-18.0) L Hematocrit 36.7 % (42.0-52.0) L Mean Corpuscular Volume 90 FL (80-99) Mean Corpuscular Hemoglobin 29.7 PG (27.0-31.0) Mean Corpuscular Hemoglobin Concent 32.9 G/DL (32.0-36.0) Red Cell Distribution Width 12.1 % (11.6-14.8) Platelet Count 189 K/UL (150-450) Mean Platelet Volume 5.7 FL (6.5-10.1) L Neutrophils (%) (Auto) 71.9 % (45.0-75.0) Lymphocytes (%) (Auto) 17.9 % (20.0-45.0) L Monocytes (%) (Auto) 8.2 % (1.0-10.0) Eosinophils (%) (Auto) 1.1 % (0.0-3.0) Basophils (%) (Auto) 1.0 % (0.0-2.0) Sodium Level 137 mEQ/L (135-145) Potassium Level 4.2 mEQ/L (3.4-4.9) Chloride Level 94 mEQ/L (98-107) L Carbon Dioxide Level 22 mEQ/L (20-30) Anion Gap 21 (5-15) H Blood Urea Nitrogen 43 mg/dL (7-23) H Creatinine 3.1 mg/dL (0.7-1.2) H Estimat Glomerular Filtration Rate 20.9 mL/min (>60) Glucose Level 155 mg/dL (74-106) H Hemoglobin A1c 8.0 % (< 6.0) H Calcium Level 9.3 mg/dL (8.6-10.2) Total Bilirubin 3.5 mg/dL (0.0-1.2) H Direct Bilirubin 3.0 mg/dL (0.1-0.3) H Aspartate Amino Transf (AST/SGOT) 72 U/L (5-40) H Alanine Aminotransferase (ALT/SGPT) 96 U/L (3-41) H Alkaline Phosphatase 348 U/L (40-129) H Total Protein 7.0 g/dL (6.6-8.7) Albumin 3.3 g/dL (3.5-5.2) L Globulin 3.7 g/dL Albumin/Globulin Ratio 0.8 (1.0-2.7) L Current Medications Medications (Trade) Dose Ordered Sig/Aleksandr Route PRN Reason Start Time Stop Time Status Last Admin Dose Admin Acetaminophen (Tylenol) 650 mg Q4H PRN ORAL fever 12/31/16 16:45 01/30/17 16:44 12/31/16 22:05 Al Hydroxide/Mg Hydroxide (Mylanta II) 30 ml Q6H PRN ORAL dyspepsia 12/31/16 16:45 01/30/17 16:44 Aspirin (Ecotrin) 81 mg DAILY ORAL 01/01/17 09:00 01/31/17 08:59 01/01/17 09:21 Atorvastatin Calcium (Lipitor) 10 mg QHS ORAL 12/31/16 22:00 01/30/17 21:59 01/01/17 20:53 Clonidine HCl (Catapres) 0.1 mg Q8H PRN ORAL if Systolic BP >150mmHg 01/01/17 18:30 01/31/17 18:29 Dextrose (Dextrose 50%) STAT PRN IV Hypoglycemia 01/01/17 07:15 01/31/17 07:14 Dextrose/Sodium Chloride (D5 0.45% NS) 1,000 ml @ 75 mls/hr [id number] IV 12/31/16 18:00 01/30/17 17:59 01/01/17 05:25 Diphenhydramine HCl (Benadryl) 25 mg Q6H PRN ORAL Itching/Pruritis 12/31/16 16:45 01/30/17 16:44 01/01/17 18:20 Gabapentin (Neurontin) 300 mg BID ORAL 12/31/16 22:00 01/30/17 21:59 01/02/17 08:50 Heparin Sodium (Porcine) (Heparin 5000 units/ml) 5,000 units EVERY 12 HOURS SUBQ 12/31/16 21:00 01/30/17 20:59 01/01/17 09:24 Insulin Aspart (NovoLOG) BEFORE MEALS AND HS SUBQ 01/01/17 11:30 01/31/17 11:29 01/02/17 05:55 Metoprolol Succinate (Toprol XL) 50 mg DAILY ORAL 01/01/17 09:00 01/31/17 08:59 01/02/17 08:50 Metronidazole 500 mg 500 mg EVERY 8 HOURS ORAL 12/31/16 18:30 01/07/17 18:29 01/02/17 05:47 Morphine Sulfate (Morphine Sulfate) 2 mg EVERY 4 HOURS PRN IVP severe Pain (Pain Scale 7-10) 12/31/16 16:45 01/07/17 16:44 Nitroglycerin 0.4 mg 0.4 mg Q5M X 3 DOSES PRN SL Prn Chest Pain 12/31/16 16:45 01/30/17 16:44 Ondansetron HCl (Zofran) 4 mg Q6H PRN IVP Nausea & Vomiting 12/31/16 16:45 01/30/17 16:44 Piperacillin Sod/ Tazobactam Sod/ Sodium Chloride (Zosyn/Sodium Chloride) 110 ml @ 27.5 mls/hr EVERY 8 HOURS IVPB 12/31/16 18:30 01/07/17 18:29 01/02/17 05:46 Polyethylene Glycol (Miralax) 17 gm HSPRN PRN ORAL Constipation 12/31/16 16:45 01/30/17 16:44 Promethazine HCl/ Codeine (Phenergan with Codeine) 5 ml Q4H PRN ORAL For Cough 12/31/16 16:45 01/30/17 16:44 Temazepam (Restoril) 15 mg HSPRN PRN ORAL Insomnia 12/31/16 16:45 01/07/17 16:44 ROBEL LOWERY 23, 2017 10:33
--- NOTE | 2017-01-02 11:47 | General Progress Note ---
Assessment/Plan Problem List: (1) Cholelithiasis ICD Codes: K80.20 - Calculus of gallbladder without cholecystitis without obstruction SNOMED: 689966774 (2) Elevated LFTs ICD Codes: R94.5 - Abnormal results of liver function studies SNOMED: 120014335 (3) RUQ pain ICD Codes: R10.11 - Right upper quadrant pain SNOMED: 527996595 (4) Cardiomyopathy ICD Codes: I42.9 - Cardiomyopathy, unspecified SNOMED: 95848752 (5) Anemia ICD Codes: D64.9 - Anemia, unspecified SNOMED: 689922110 Assessment/Plan MRCP reviewed ERCP canceled fu surg recs pend HIDA scan Subjective ROS Limited/Unobtainable: Yes Allergies: Coded Allergies: No Known Allergies (Unverified , 09/03/15) Subjective abd pain Objective Last 24 Hour Vital Signs Date Time Temp Pulse Resp B/P Pulse Ox O2 Delivery O2 Flow Rate FiO2 01/02/17 09:49 97.7 01/02/17 08:50 82 137/86 01/02/17 08:12 97.7 82 20 137/86 94 Room Air 01/02/17 04:00 98.2 83 22 128/68 95 Room Air 01/02/17 00:30 97.2 94 18 123/71 99 Room Air 01/01/17 20:00 98.2 88 19 136/88 94 Room Air 01/01/17 16:00 96.6 90 20 156/96 95 Room Air 01/01/17 12:00 98.1 89 145/87 Room Air Intake and Output 01/01/17 01/02/17 19:00 07:00 Intake Total 975 ml 375 ml Output Total 425 ml Balance 975 ml -50 ml Intake IV Total 975 ml 375 ml Output Urine Total 425 ml Laboratory Tests 01/02/17 05:10: White Blood Count 7.1, Red Blood Count 4.06L, Hemoglobin 12.1L, Hematocrit 36.7L , Mean Corpuscular Volume 90, Mean Corpuscular Hemoglobin 29.7, Mean Corpuscular Hemoglobin Concent 32.9, Red Cell Distribution Width 12.1, Platelet Count 189, Mean Platelet Volume 5.7L, Neutrophils (%) (Auto) 71.9, Lymphocytes ( %) (Auto) 17.9L, Monocytes (%) (Auto) 8.2, Eosinophils (%) (Auto) 1.1, Basophils (%) (Auto) 1.0, Sodium Level 137, Potassium Level 4.2, Chloride Level 94L, Carbon Dioxide Level 22, Anion Gap 21H, Blood Urea Nitrogen 43H, Creatinine 3.1H, Estimat Glomerular Filtration Rate 20.9, Glucose Level 155H, Hemoglobin A1c 8.0H, Calcium Level 9.3, Total Bilirubin 3.5H, Direct Bilirubin 3.0H, Aspartate Amino Transf (AST/SGOT) 72H, Alanine Aminotransferase (ALT/SGPT ) 96H, Alkaline Phosphatase 348H, Total Protein 7.0, Albumin 3.3L, Globulin 3.7 , Albumin/Globulin Ratio 0.8L Height (Feet): 5 Height (Inches): 5.00 Weight (Pounds): 150 General Appearance: alert EENT: normal ENT inspection Neck: supple Cardiovascular: normal rate Respiratory/Chest: decreased breath sounds Abdomen: soft, tender Extremities: non-tender ESTEPHANIA CHAVEZ Jan 02, 2017 11:47
--- NOTE | 2017-01-02 11:49 | General Progress Note ---
Progress Note Progress Note Chart reviewed, pt examined along with Syriac nurse interpreter translator, consult dictated, xrays reviewed with radiologist, case discussed with GI staff. The pt has a puzzling picture of obstructive jaundice with a normal common bile duct. We will obtain a HIDA scan to see if the pt has cholecystitis. Chandler Lebron MD Jan 02, 2017 11:49
[2017-01-02 12:00] VITALS: BP 146/83
--- NOTE | 2017-01-02 12:22 | Nephrology Progress Note ---
Assessment/Plan Assessment 1.ARF 2.ATN 2.acute cholecystis 3.sepsis 4.HTN Plan Plan 1hold lasix 2.monitoring electrolyte 3.avoid NSAID 4.IVF 5.check in put and out put Subjective Constitutional: Reports: no symptoms HEENT: Reports: no symptoms Genitourinary: Reports: no symptoms Neurologic/Psychiatric: Reports: no symptoms Subjective alert and wake c/o RUQ pain Objective Objective Last 24 Hour Vital Signs Date Time Temp Pulse Resp B/P Pulse Ox O2 Delivery O2 Flow Rate FiO2 01/02/17 09:49 97.7 01/02/17 08:50 82 137/86 01/02/17 08:12 97.7 82 20 137/86 94 Room Air 01/02/17 04:00 98.2 83 22 128/68 95 Room Air 01/02/17 00:30 97.2 94 18 123/71 99 Room Air 01/01/17 20:00 98.2 88 19 136/88 94 Room Air 01/01/17 16:00 96.6 90 20 156/96 95 Room Air Intake and Output 01/01/17 01/02/17 19:00 07:00 Intake Total 975 ml 375 ml Output Total 425 ml Balance 975 ml -50 ml Intake IV Total 975 ml 375 ml Output Urine Total 425 ml Laboratory Tests 01/02/17 05:10: White Blood Count 7.1, Red Blood Count 4.06L, Hemoglobin 12.1L, Hematocrit 36.7L , Mean Corpuscular Volume 90, Mean Corpuscular Hemoglobin 29.7, Mean Corpuscular Hemoglobin Concent 32.9, Red Cell Distribution Width 12.1, Platelet Count 189, Mean Platelet Volume 5.7L, Neutrophils (%) (Auto) 71.9, Lymphocytes ( %) (Auto) 17.9L, Monocytes (%) (Auto) 8.2, Eosinophils (%) (Auto) 1.1, Basophils (%) (Auto) 1.0, Sodium Level 137, Potassium Level 4.2, Chloride Level 94L, Carbon Dioxide Level 22, Anion Gap 21H, Blood Urea Nitrogen 43H, Creatinine 3.1H, Estimat Glomerular Filtration Rate 20.9, Glucose Level 155H, Hemoglobin A1c 8.0H, Calcium Level 9.3, Total Bilirubin 3.5H, Direct Bilirubin 3.0H, Aspartate Amino Transf (AST/SGOT) 72H, Alanine Aminotransferase (ALT/SGPT ) 96H, Alkaline Phosphatase 348H, Total Protein 7.0, Albumin 3.3L, Globulin 3.7 , Albumin/Globulin Ratio 0.8L Height (Feet): 5 Height (Inches): 5.00 Weight (Pounds): 150 Objective HEAD AND NECK: No JVP. No LAD. No thyromegaly. Extraocular movements are intact. Pupils are reactive to light and accommodation. LUNGS: Clear to auscultation. CARDIAC: Regular rate and rhythm. S1-S2. No murmur. No rub. ABDOMEN: Soft. Mild right upper quadrant tenderness and guarding. No rebound. EXTREMITIES: No edema. No clubbing. No cyanosis. GERMÁN HERNANDEZ Jan 02, 2017 12:22
[2017-01-02 17:45] VITALS: BP 155/96
[2017-01-02] MEDS ORDERED: Ketorolac 30mg Inj IV PRN (18:30)
--- NOTE | 2017-01-02 18:58 | Consultation ---
DATE OF CONSULTATION: 01/02/2017 SURGICAL CONSULTATION CONSULTING PHYSICIAN: Chandler Lebron M.D. REASON FOR CONSULTATION: Abdominal pain, jaundice, rule out cholecystitis. HISTORY OF PRESENT ILLNESS: This 56-year-old [place] male developed problems with upper abdominal pain and nausea approximately six days ago. He had some chills, but no documented fever. He denied any history of jaundice. He initially had some diarrhea prior to onset of symptoms, but that has abated. His pain is mostly in the right upper abdomen. PAST MEDICAL HISTORY: Previous surgery includes a coronary bypass in August of 2015. He claims he did not have a heart attack prior to his surgery. ALLERGIES: None known. MEDICATIONS: Aspirin 81 mg daily, Lipitor 10 mg daily, ferrous sulfate 325 mg twice a day, Lasix 40 mg daily, Neurontin 300 mg b.i.d., Lantus insulin 20 units every morning, lisinopril 20 mg daily, metoprolol 50 mg daily, omeprazole 20 mg daily, prednisolone eye drops one drop in right eye q.i.d., and Aldactone 25 mg daily. SOCIAL HISTORY: Tobacco, none. Alcohol, none. Occupation, the patient is a senior inspector. FAMILY HISTORY: Positive for diabetes mellitus in the patient's maternal grandmother. REVIEW OF SYSTEMS: Essentially negative. He was told prior to his heart surgery that he had some element of renal insufficiency. He denies any symptoms of chest pain. He is able to walk for 30 minutes to an hour without chest pain or shortness of breath. The patient had a 15-pound weight gain after his heart surgery. PHYSICAL EXAMINATION: GENERAL: A well-developed, well-nourished male, complaining of abdominal pain. VITAL SIGNS: Temperature 97.7, blood pressure 137/86, pulse 82, and respirations 20. HEENT: Normocephalic. Pupils are equal and reactive to light. There is no obvious scleral icterus. NECK: Supple without adenopathy. LUNGS: Clear. There is a healed sternotomy scar present. ABDOMEN: Slightly protuberant. There were no masses. There is tenderness in the right upper quadrant with a mildly positive Sun sign. EXTREMITIES: No clubbing, cyanosis, or edema. Peripheral pulses are intact. LABORATORY AND DIAGNOSTIC DATA: CBC today shows a white blood count of 7100, hemoglobin 12.1 g%, hematocrit 36.7%, and platelet count 189,000. Clinical chemistry shows sodium of 137, potassium 4.2, chloride 94, bicarbonate 22, BUN 43, creatinine 3.1, and glucose 155. Estimated glomerular filtration rate is 20.9. Liver panel today shows a total bilirubin of 3.5, direct of 3.0, SGOT elevated to 96, SGPT 72, and alkaline phosphatase elevated to 348. Amylase yesterday was normal at 97. An ultrasound of the abdomen revealed some thickening of the gallbladder wall. There was sludge noted in the gallbladder. No obvious gallstones. MRCP showed no biliary ductal dilatation. There was passage of contrast into the duodenum. There was thickening of the gallbladder wall. The gallbladder was distended. There was no dilatation of the intrahepatic ducts. IMPRESSION: Abdominal pain, jaundice. No ductal dilatation. The case was discussed with the vp celebrity services. He feels there was no indication for an MRCP in this patient in view of the nondilated bile ducts without evidence of common duct stone. PLAN: We will obtain a HIDA scan to see if the cystic duct is obstructed. If the duct is obstructed, we will make arrangements for laparoscopic cholecystectomy. If the cystic duct is patent, we will continue with medical management. Chandler Lebron M.D. DR: MIRZA JOB#: [id number] CC:
[2017-01-02 20:00] VITALS: BP 147/91
--- NOTE | 2017-01-02 23:03 | Pulmonology Progress Note ---
Subjective Allergies: Coded Allergies: No Known Allergies (Unverified , 09/03/15) Objective Last 24 Hour Vital Signs Date Time Temp Pulse Resp B/P Pulse Ox O2 Delivery O2 Flow Rate FiO2 01/02/17 20:00 98.1 89 18 147/91 96 Room Air 01/02/17 17:45 97.7 80 16 155/96 96 Room Air 01/02/17 12:30 97.7 01/02/17 12:00 98.3 88 18 146/83 95 Room Air 01/02/17 09:49 97.7 01/02/17 08:50 82 137/86 01/02/17 08:12 97.7 82 20 137/86 94 Room Air 01/02/17 04:00 98.2 83 22 128/68 95 Room Air 01/02/17 00:30 97.2 94 18 123/71 99 Room Air Intake and Output 01/01/17 01/02/17 19:00 07:00 Intake Total 975 ml 375 ml Output Total 425 ml Balance 975 ml -50 ml Intake IV Total 975 ml 375 ml Output Urine Total 425 ml Microbiology Date/Time Source Procedure Growth Status 01/01/17 06:30 Sputum Gram Stain - Final Resulted 01/01/17 06:30 Sputum Sputum Culture Pending Resulted Laboratory Tests 01/02/17 05:10: White Blood Count 7.1, Red Blood Count 4.06L, Hemoglobin 12.1L, Hematocrit 36.7L , Mean Corpuscular Volume 90, Mean Corpuscular Hemoglobin 29.7, Mean Corpuscular Hemoglobin Concent 32.9, Red Cell Distribution Width 12.1, Platelet Count 189, Mean Platelet Volume 5.7L, Neutrophils (%) (Auto) 71.9, Lymphocytes ( %) (Auto) 17.9L, Monocytes (%) (Auto) 8.2, Eosinophils (%) (Auto) 1.1, Basophils (%) (Auto) 1.0, Sodium Level 137, Potassium Level 4.2, Chloride Level 94L, Carbon Dioxide Level 22, Anion Gap 21H, Blood Urea Nitrogen 43H, Creatinine 3.1H, Estimat Glomerular Filtration Rate 20.9, Glucose Level 155H, Hemoglobin A1c 8.0H, Calcium Level 9.3, Total Bilirubin 3.5H, Direct Bilirubin 3.0H, Aspartate Amino Transf (AST/SGOT) 72H, Alanine Aminotransferase (ALT/SGPT ) 96H, Alkaline Phosphatase 348H, Total Protein 7.0, Albumin 3.3L, Globulin 3.7 , Albumin/Globulin Ratio 0.8L Current Medications Medications (Trade) Dose Ordered Sig/Aleksandr Route PRN Reason Start Time Stop Time Status Last Admin Dose Admin Acetaminophen (Tylenol) 650 mg Q4H PRN ORAL fever 12/31/16 16:45 01/30/17 16:44 12/31/16 22:05 Al Hydroxide/Mg Hydroxide (Mylanta II) 30 ml Q6H PRN ORAL dyspepsia 12/31/16 16:45 01/30/17 16:44 Aspirin (Ecotrin) 81 mg DAILY ORAL 01/01/17 09:00 01/31/17 08:59 01/01/17 09:21 Atorvastatin Calcium (Lipitor) 10 mg QHS ORAL 12/31/16 22:00 01/30/17 21:59 01/02/17 21:10 Clonidine HCl (Catapres) 0.1 mg Q8H PRN ORAL if Systolic BP >150mmHg 01/01/17 18:30 01/31/17 18:29 Dextrose (Dextrose 50%) STAT PRN IV Hypoglycemia 01/01/17 07:15 01/31/17 07:14 Dextrose/Sodium Chloride (D5 0.45% NS) 1,000 ml @ 75 mls/hr [id number] IV 12/31/16 18:00 01/30/17 17:59 01/02/17 14:07 Diphenhydramine HCl (Benadryl) 25 mg Q6H PRN ORAL Itching/Pruritis 12/31/16 16:45 01/30/17 16:44 01/02/17 21:14 Heparin Sodium (Porcine) (Heparin 5000 units/ml) 5,000 units EVERY 12 HOURS SUBQ 12/31/16 21:00 01/30/17 20:59 01/02/17 21:23 Insulin Aspart (NovoLOG) BEFORE MEALS AND HS SUBQ 01/01/17 11:30 01/31/17 11:29 01/02/17 05:55 Ketorolac Tromethamine (Toradol 30mg) 15 mg Q6H PRN IV pain 01/02/17 18:30 01/07/17 18:29 01/02/17 21:11 Metoprolol Succinate (Toprol XL) 50 mg DAILY ORAL 01/01/17 09:00 01/31/17 08:59 01/02/17 08:50 Metronidazole 500 mg 500 mg EVERY 8 HOURS ORAL 12/31/16 18:30 01/07/17 18:29 01/02/17 21:28 Nitroglycerin 0.4 mg 0.4 mg Q5M X 3 DOSES PRN SL Prn Chest Pain 12/31/16 16:45 01/30/17 16:44 Ondansetron HCl (Zofran) 4 mg Q6H PRN IVP Nausea & Vomiting 12/31/16 16:45 01/30/17 16:44 Piperacillin Sod/ Tazobactam Sod/ Sodium Chloride (Zosyn/Sodium Chloride) 110 ml @ 27.5 mls/hr EVERY 8 HOURS IVPB 12/31/16 18:30 01/07/17 18:29 01/02/17 21:14 Polyethylene Glycol (Miralax) 17 gm HSPRN PRN ORAL Constipation 12/31/16 16:45 01/30/17 16:44 Promethazine HCl/ Codeine (Phenergan with Codeine) 5 ml Q4H PRN ORAL For Cough 12/31/16 16:45 01/30/17 16:44 Temazepam (Restoril) 15 mg HSPRN PRN ORAL Insomnia 12/31/16 16:45 01/07/17 16:44 CHRIS YEE Jan 02, 2017 23:03
[2017-01-03] VITALS: BP 129/82
[2017-01-03 04:00] VITALS: BP 143/88
[2017-01-03 05:26] LABS: BASOPHILS % (AUTO) 1.2 % (0.0-2.0); EOSINOPHILS % (AUTO) 1.7 % (0.0-3.0); LYMPHOCYTES % (AUTO) 20.8 % (20.0-45.0); MEAN CORPUSCULAR HEMOGLOBIN 30.2 PG (27.0-31.0); MEAN CORPUSCULAR HGB CONC 33.4 G/DL (32.0-36.0); MEAN CORPUSCULAR VOLUME 90 FL (80-99); MEAN PLATELET VOLUME 5.4 FL (6.5-10.1); MONOCYTES % (AUTO) 9.2 % (1.0-10.0); NEUTROPHILS % (AUTO) 67.1 % (45.0-75.0); PLATELET COUNT 194 K/UL (150-450); RED BLOOD COUNT 3.71 M/UL (4.70-6.10); WHITE BLOOD COUNT 6.8 K/UL (4.8-10.8)
[2017-01-03] MEDS: Piperacillin/Tazobactam 3.375 GM in NS 110 ML IVPB SCH ×3 (05:35→21:30)
[2017-01-03] MEDS: metroNIDAZOLE 500mg tab ORAL SCH ×3 (05:35→21:23)
[2017-01-03 05:52] LABS: ALBUMIN/GLOBULIN RATIO 0.7 (1.0-2.7); CALCIUM 8.8 mg/dL (8.6-10.2); CREATININE 3.1 mg/dL (0.7-1.2); GLOMERULAR FILTRATION RATE 20.9 mL/min (>60); POTASSIUM 4.2 mEQ/L (3.4-4.9); TOTAL PROTEIN 6.4 g/dL (6.6-8.7)
[2017-01-03] MEDS: NovoLOG Insulin Flexpen SUBQ SCH ×4 (06:17→21:29)
[2017-01-03 06:55] LABS: BILIRUBIN,DIRECT 1.2 mg/dL (0.1-0.3)
[2017-01-03 08:00] VITALS: BP 139/88
--- NOTE | 2017-01-03 08:46 | Diagnostic Imaging Report ---
Indication: Abdominal pain Technique: IV administration 5.5 mCi 99M technetium mebrofenin. Images obtained of the liver for 75 minutes Comparison: Reference made to MRCP dated 01/01/2017, ultrasound dated 12/31/2016 Findings: Of tracer uptake within the liver. Extrahepatic bile ducts are seen at 22 minutes. Tracer activity within the small bowel is seen at 25-28 minutes. Activity begins to appear within the gallbladder at 37 minutes Impression: Negative hepatobiliary scan. Patent cystic duct and common bile duct This agrees with the preliminary interpretation provided overnight by Dr. Lopez Images also reviewed in person with Dr. Lebron at the time of interpretation
[2017-01-03] MEDS: Aspirin EC 81mg tab ORAL SCH (09:28)
[2017-01-03] MEDS: Heparin 5000 units/ml inj SUBQ SCH ×2 (09:33→21:29)
--- NOTE | 2017-01-03 09:37 | General Progress Note ---
Progress Note Progress Note Afebrile. Awake and alert, some improvement in abdominal pain. The HIDA scan did visualize the gallbladder. His LFTs are improving. There is no need for a cholecystectomy. We will start a clear liquid diet. Chandler Lebron MD Jan 03, 2017 09:37
--- NOTE | 2017-01-03 10:04 | Infectious Diseases Prog Note ---
Assessment/Plan Assessment/Plan ASSESSMENT: 56 y/o male with: // Possible acute cholecystitis - surgery following - elevated LFTs, improved, (+) Sun's - HIDA: Negative hepatobiliary scan. Patent cystic duct and common bile duct - MRCP: No biliary ductal dilatation or evidence of choledocholithiasis. Abnormal moderate thickening of the gallbladder wall. Small stones versus sludge. - US: Thickening of the gallbladder wall. // Leukocytosis, mild - resolved, afebrile // Atypical chest pain, possibly biliary - trop(-) x1 - TTE: EF 60%, grade I diastolic dysfunction, trace valvular disease - h/o CAD SP CABG // ARF, probable CKD - stable // DM2 // NKDA // Full Code PLAN: - continue zosyn, flagyl d# 3 / . Ok to complete course with PO cipro + flagyl at discharge - f/u cultures - surgery following - monitor CBC, temperatures - monitor CMP Subjective Allergies: Coded Allergies: No Known Allergies (Unverified , 09/03/15) Subjective remains afebrile HIDA neg Objective Vital Signs Last 24 Hour Vital Signs Date Time Temp Pulse Resp B/P Pulse Ox O2 Delivery O2 Flow Rate FiO2 01/03/17 09:29 72 139/88 01/03/17 08:00 97.9 72 19 139/88 99 Room Air 01/03/17 04:00 97.9 71 18 143/88 96 Room Air 01/03/17 00:00 97.9 85 18 129/82 97 Room Air 01/02/17 20:00 98.1 89 18 147/91 96 Room Air 01/02/17 17:45 97.7 80 16 155/96 96 Room Air 01/02/17 12:30 97.7 01/02/17 12:00 98.3 88 18 146/83 95 Room Air Height (Feet): 5 Height (Inches): 5.00 Weight (Pounds): 150 General Appearance: no acute distress Respiratory/Chest: no respiratory distress Cardiovascular: normal rate, regular rhythm Abdomen: normal bowel sounds, soft, non tender, non distended Microbiology Date/Time Source Procedure Growth Status 01/01/17 06:30 Sputum Gram Stain - Final Resulted 01/01/17 06:30 Sputum Culture - Preliminary Gram Negative Bacillus 1 Resulted Laboratory Tests Test 01/03/17 04:40 White Blood Count 6.8 K/UL (4.8-10.8) Red Blood Count 3.71 M/UL (4.70-6.10) L Hemoglobin 11.2 G/DL (14.2-18.0) L Hematocrit 33.5 % (42.0-52.0) L Mean Corpuscular Volume 90 FL (80-99) Mean Corpuscular Hemoglobin 30.2 PG (27.0-31.0) Mean Corpuscular Hemoglobin Concent 33.4 G/DL (32.0-36.0) Red Cell Distribution Width 12.0 % (11.6-14.8) Platelet Count 194 K/UL (150-450) Mean Platelet Volume 5.4 FL (6.5-10.1) L Neutrophils (%) (Auto) 67.1 % (45.0-75.0) Lymphocytes (%) (Auto) 20.8 % (20.0-45.0) Monocytes (%) (Auto) 9.2 % (1.0-10.0) Eosinophils (%) (Auto) 1.7 % (0.0-3.0) Basophils (%) (Auto) 1.2 % (0.0-2.0) Sodium Level 141 mEQ/L (135-145) Potassium Level 4.2 mEQ/L (3.4-4.9) Chloride Level 101 mEQ/L (98-107) Carbon Dioxide Level 23 mEQ/L (20-30) Anion Gap 17 (5-15) H Blood Urea Nitrogen 45 mg/dL (7-23) H Creatinine 3.1 mg/dL (0.7-1.2) H Estimat Glomerular Filtration Rate 20.9 mL/min (>60) Glucose Level 152 mg/dL (74-106) H Calcium Level 8.8 mg/dL (8.6-10.2) Total Bilirubin 2.0 mg/dL (0.0-1.2) H Direct Bilirubin 1.2 mg/dL (0.1-0.3) H Aspartate Amino Transf (AST/SGOT) 45 U/L (5-40) H Alanine Aminotransferase (ALT/SGPT) 68 U/L (3-41) H Alkaline Phosphatase 317 U/L (40-129) H Total Protein 6.4 g/dL (6.6-8.7) L Albumin 2.8 g/dL (3.5-5.2) L Globulin 3.6 g/dL Albumin/Globulin Ratio 0.7 (1.0-2.7) L Current Medications Medications (Trade) Dose Ordered Sig/Aleksandr Route PRN Reason Start Time Stop Time Status Last Admin Dose Admin Acetaminophen (Tylenol) 650 mg Q4H PRN ORAL fever 12/31/16 16:45 01/30/17 16:44 12/31/16 22:05 Al Hydroxide/Mg Hydroxide (Mylanta II) 30 ml Q6H PRN ORAL dyspepsia 12/31/16 16:45 01/30/17 16:44 Aspirin (Ecotrin) 81 mg DAILY ORAL 01/01/17 09:00 01/31/17 08:59 01/03/17 09:28 Atorvastatin Calcium (Lipitor) 10 mg QHS ORAL 12/31/16 22:00 01/30/17 21:59 01/02/17 21:10 Clonidine HCl (Catapres) 0.1 mg Q8H PRN ORAL if Systolic BP >150mmHg 01/01/17 18:30 01/31/17 18:29 Dextrose (Dextrose 50%) STAT PRN IV Hypoglycemia 01/01/17 07:15 01/31/17 07:14 Dextrose/Sodium Chloride (D5 0.45% NS) 1,000 ml @ 75 mls/hr [id number] IV 12/31/16 18:00 01/30/17 17:59 01/02/17 14:07 Diphenhydramine HCl (Benadryl) 25 mg Q6H PRN ORAL Itching/Pruritis 12/31/16 16:45 01/30/17 16:44 01/02/17 21:14 Heparin Sodium (Porcine) (Heparin 5000 units/ml) 5,000 units EVERY 12 HOURS SUBQ 12/31/16 21:00 01/30/17 20:59 01/03/17 09:33 Insulin Aspart (NovoLOG) BEFORE MEALS AND HS SUBQ 01/01/17 11:30 01/31/17 11:29 01/02/17 05:55 Ketorolac Tromethamine (Toradol 30mg) 15 mg Q6H PRN IV pain 01/02/17 18:30 01/07/17 18:29 01/02/17 21:11 Metoprolol Succinate (Toprol XL) 50 mg DAILY ORAL 01/01/17 09:00 01/31/17 08:59 01/03/17 09:29 Metronidazole 500 mg 500 mg EVERY 8 HOURS ORAL 12/31/16 18:30 01/07/17 18:29 01/03/17 05:35 Nitroglycerin 0.4 mg 0.4 mg Q5M X 3 DOSES PRN SL Prn Chest Pain 12/31/16 16:45 01/30/17 16:44 Ondansetron HCl (Zofran) 4 mg Q6H PRN IVP Nausea & Vomiting 12/31/16 16:45 01/30/17 16:44 Piperacillin Sod/ Tazobactam Sod/ Sodium Chloride (Zosyn/Sodium Chloride) 110 ml @ 27.5 mls/hr EVERY 8 HOURS IVPB 12/31/16 18:30 01/07/17 18:29 01/03/17 05:35 Polyethylene Glycol (Miralax) 17 gm HSPRN PRN ORAL Constipation 12/31/16 16:45 01/30/17 16:44 Promethazine HCl/ Codeine (Phenergan with Codeine) 5 ml Q4H PRN ORAL For Cough 12/31/16 16:45 01/30/17 16:44 Temazepam (Restoril) 15 mg HSPRN PRN ORAL Insomnia 12/31/16 16:45 01/07/17 16:44 ROBEL LOWERY 24, 2017 10:04
--- NOTE | 2017-01-03 10:26 | General Progress Note ---
Assessment/Plan Problem List: (1) Cholelithiasis ICD Codes: K80.20 - Calculus of gallbladder without cholecystitis without obstruction SNOMED: 162752177 (2) Elevated LFTs ICD Codes: R94.5 - Abnormal results of liver function studies SNOMED: 479190666 (3) RUQ pain ICD Codes: R10.11 - Right upper quadrant pain SNOMED: 839485276 (4) Cardiomyopathy ICD Codes: I42.9 - Cardiomyopathy, unspecified SNOMED: 66421296 (5) Anemia ICD Codes: D64.9 - Anemia, unspecified SNOMED: 610158593 Assessment/Plan ? passed CBD stone improved labs on clears fu Subjective ROS Limited/Unobtainable: Yes Allergies: Coded Allergies: No Known Allergies (Unverified , 09/03/15) Subjective abd pain improving Objective Last 24 Hour Vital Signs Date Time Temp Pulse Resp B/P Pulse Ox O2 Delivery O2 Flow Rate FiO2 01/03/17 09:29 72 139/88 01/03/17 08:00 97.9 72 19 139/88 99 Room Air 01/03/17 04:00 97.9 71 18 143/88 96 Room Air 01/03/17 00:00 97.9 85 18 129/82 97 Room Air 01/02/17 20:00 98.1 89 18 147/91 96 Room Air 01/02/17 17:45 97.7 80 16 155/96 96 Room Air 01/02/17 12:30 97.7 01/02/17 12:00 98.3 88 18 146/83 95 Room Air Intake and Output 01/02/17 01/03/17 19:00 07:00 Intake Total 27.5 ml Output Total 600 ml 300 ml Balance -572.5 ml -300 ml Intake IV Total 27.5 ml Output Urine Total 600 ml 300 ml # Bowel Movements 1 Laboratory Tests 01/03/17 04:40: White Blood Count 6.8, Red Blood Count 3.71L, Hemoglobin 11.2L, Hematocrit 33.5L , Mean Corpuscular Volume 90, Mean Corpuscular Hemoglobin 30.2, Mean Corpuscular Hemoglobin Concent 33.4, Red Cell Distribution Width 12.0, Platelet Count 194, Mean Platelet Volume 5.4L, Neutrophils (%) (Auto) 67.1, Lymphocytes ( %) (Auto) 20.8, Monocytes (%) (Auto) 9.2, Eosinophils (%) (Auto) 1.7, Basophils (%) (Auto) 1.2, Sodium Level 141, Potassium Level 4.2, Chloride Level 101, Carbon Dioxide Level 23, Anion Gap 17H, Blood Urea Nitrogen 45H, Creatinine 3.1H , Estimat Glomerular Filtration Rate 20.9, Glucose Level 152H, Calcium Level 8.8 , Total Bilirubin 2.0H, Direct Bilirubin 1.2H, Aspartate Amino Transf (AST/SGOT ) 45H, Alanine Aminotransferase (ALT/SGPT) 68H, Alkaline Phosphatase 317H, Total Protein 6.4L, Albumin 2.8L, Globulin 3.6, Albumin/Globulin Ratio 0.7L Height (Feet): 5 Height (Inches): 5.00 Weight (Pounds): 150 General Appearance: alert EENT: normal ENT inspection Neck: supple Cardiovascular: normal rate Respiratory/Chest: decreased breath sounds Abdomen: normal bowel sounds, non tender, soft Extremities: non-tender ESTEPHANIA CHAVEZ Jan 03, 2017 10:26
[2017-01-03 10:40] LABS: CREATININE RANDOM URINE 92.1 mg/dL (Not Estab.); MICROALBUMIN/CREATININE RATIO 602.7 mg/g creat (0.0-30.0)
[2017-01-03 12:00] VITALS: BP 152/88
[2017-01-03] MEDS: D5 1/2NS 1,000 ML IV SCH (12:40)
--- NOTE | 2017-01-03 12:49 | Nephrology Progress Note ---
Assessment/Plan Assessment 1.ARF 2.ATN 2.acute cholecystis 3.sepsis 4.HTN Plan Plan 1hold lasix 2.monitoring electrolyte 3.avoid NSAID d/c Toradol 4.IVF 5.check in put and out put Subjective Constitutional: Reports: no symptoms HEENT: Reports: no symptoms Genitourinary: Reports: no symptoms Neurologic/Psychiatric: Reports: no symptoms Subjective alert and wake c/o RUQ pain but has improved since admission had HIDA scan was negative for acute cholecystics Objective Objective Last 24 Hour Vital Signs Date Time Temp Pulse Resp B/P Pulse Ox O2 Delivery O2 Flow Rate FiO2 01/03/17 12:00 98.3 70 18 152/88 97 Room Air 01/03/17 09:29 72 139/88 01/03/17 08:00 97.9 72 19 139/88 99 Room Air 01/03/17 04:00 97.9 71 18 143/88 96 Room Air 01/03/17 00:00 97.9 85 18 129/82 97 Room Air 01/02/17 20:00 98.1 89 18 147/91 96 Room Air 01/02/17 17:45 97.7 80 16 155/96 96 Room Air Intake and Output 01/02/17 01/03/17 19:00 07:00 Intake Total 27.5 ml Output Total 600 ml 300 ml Balance -572.5 ml -300 ml Intake IV Total 27.5 ml Output Urine Total 600 ml 300 ml # Bowel Movements 1 Laboratory Tests 01/03/17 04:40: White Blood Count 6.8, Red Blood Count 3.71L, Hemoglobin 11.2L, Hematocrit 33.5L , Mean Corpuscular Volume 90, Mean Corpuscular Hemoglobin 30.2, Mean Corpuscular Hemoglobin Concent 33.4, Red Cell Distribution Width 12.0, Platelet Count 194, Mean Platelet Volume 5.4L, Neutrophils (%) (Auto) 67.1, Lymphocytes ( %) (Auto) 20.8, Monocytes (%) (Auto) 9.2, Eosinophils (%) (Auto) 1.7, Basophils (%) (Auto) 1.2, Sodium Level 141, Potassium Level 4.2, Chloride Level 101, Carbon Dioxide Level 23, Anion Gap 17H, Blood Urea Nitrogen 45H, Creatinine 3.1H , Estimat Glomerular Filtration Rate 20.9, Glucose Level 152H, Calcium Level 8.8 , Total Bilirubin 2.0H, Direct Bilirubin 1.2H, Aspartate Amino Transf (AST/SGOT ) 45H, Alanine Aminotransferase (ALT/SGPT) 68H, Alkaline Phosphatase 317H, Total Protein 6.4L, Albumin 2.8L, Globulin 3.6, Albumin/Globulin Ratio 0.7L Height (Feet): 5 Height (Inches): 5.00 Weight (Pounds): 150 Objective HEAD AND NECK: No JVP. No LAD. No thyromegaly. Extraocular movements are intact. Pupils are reactive to light and accommodation. LUNGS: Clear to auscultation. CARDIAC: Regular rate and rhythm. S1-S2. No murmur. No rub. ABDOMEN: Soft. Mild right upper quadrant tenderness and guarding. No rebound. EXTREMITIES: No edema. No clubbing. No cyanosis. GERMÁN HERNANDEZ Jan 03, 2017 12:49
[2017-01-03 16:00] VITALS: BP 168/90
[2017-01-03 20:00] VITALS: BP 155/89
[2017-01-03] MEDS ORDERED: Norco 5mg/325mg tab ORAL PRN (21:15)
--- NOTE | 2017-01-03 22:47 | Pulmonology Progress Note ---
Subjective Allergies: Coded Allergies: No Known Allergies (Unverified , 09/03/15) Objective Last 24 Hour Vital Signs Date Time Temp Pulse Resp B/P Pulse Ox O2 Delivery O2 Flow Rate FiO2 01/03/17 21:22 155/89 01/03/17 20:00 97.9 76 20 155/89 96 Room Air 01/03/17 16:00 97.7 69 20 168/90 96 Room Air 01/03/17 12:00 98.3 70 18 152/88 97 Room Air 01/03/17 09:29 72 139/88 01/03/17 08:00 97.9 72 19 139/88 99 Room Air 01/03/17 04:00 97.9 71 18 143/88 96 Room Air 01/03/17 00:00 97.9 85 18 129/82 97 Room Air Intake and Output 01/02/17 01/03/17 19:00 07:00 Intake Total 27.5 ml 75 ml Output Total 600 ml 300 ml Balance -572.5 ml -225 ml IV Total 27.5 ml 75 ml Output Urine Total 600 ml 300 ml # Bowel Movements 1 Microbiology Date/Time Source Procedure Growth Status 01/01/17 06:30 Sputum Gram Stain - Final Resulted 01/01/17 06:30 Sputum Culture - Preliminary Gram Negative Bacillus 1 Resulted Laboratory Tests 01/03/17 04:40: White Blood Count 6.8, Red Blood Count 3.71L, Hemoglobin 11.2L, Hematocrit 33.5L , Mean Corpuscular Volume 90, Mean Corpuscular Hemoglobin 30.2, Mean Corpuscular Hemoglobin Concent 33.4, Red Cell Distribution Width 12.0, Platelet Count 194, Mean Platelet Volume 5.4L, Neutrophils (%) (Auto) 67.1, Lymphocytes ( %) (Auto) 20.8, Monocytes (%) (Auto) 9.2, Eosinophils (%) (Auto) 1.7, Basophils (%) (Auto) 1.2, Sodium Level 141, Potassium Level 4.2, Chloride Level 101, Carbon Dioxide Level 23, Anion Gap 17H, Blood Urea Nitrogen 45H, Creatinine 3.1H , Estimat Glomerular Filtration Rate 20.9, Glucose Level 152H, Calcium Level 8.8 , Total Bilirubin 2.0H, Direct Bilirubin 1.2H, Aspartate Amino Transf (AST/SGOT ) 45H, Alanine Aminotransferase (ALT/SGPT) 68H, Alkaline Phosphatase 317H, Total Protein 6.4L, Albumin 2.8L, Globulin 3.6, Albumin/Globulin Ratio 0.7L Current Medications Medications (Trade) Dose Ordered Sig/Aleksandr Route PRN Reason Start Time Stop Time Status Last Admin Dose Admin Acetaminophen (Tylenol) 650 mg Q4H PRN ORAL fever 12/31/16 16:45 01/30/17 16:44 12/31/16 22:05 Acetaminophen/ Hydrocodone Bitart ([place] 5/325) 1 tab Q6H PRN ORAL PAIN SCALE 4-10 01/03/17 21:15 01/10/17 21:14 01/03/17 21:22 Al Hydroxide/Mg Hydroxide (Mylanta II) 30 ml Q6H PRN ORAL dyspepsia 12/31/16 16:45 01/30/17 16:44 Aspirin (Ecotrin) 81 mg DAILY ORAL 01/01/17 09:00 01/31/17 08:59 01/03/17 09:28 Atorvastatin Calcium (Lipitor) 10 mg QHS ORAL 12/31/16 22:00 01/30/17 21:59 01/03/17 21:22 Clonidine HCl (Catapres) 0.1 mg Q8H PRN ORAL if Systolic BP >150mmHg 01/01/17 18:30 01/31/17 18:29 01/03/17 21:22 Dextrose (Dextrose 50%) STAT PRN IV Hypoglycemia 01/01/17 07:15 01/31/17 07:14 Dextrose/Sodium Chloride (D5 0.45% NS) 1,000 ml @ 75 mls/hr [id number] IV 12/31/16 18:00 01/30/17 17:59 01/02/17 14:07 Diphenhydramine HCl (Benadryl) 25 mg Q6H PRN ORAL Itching/Pruritis 12/31/16 16:45 01/30/17 16:44 01/03/17 17:29 Gabapentin (Neurontin) 300 mg BID ORAL 01/03/17 18:00 02/02/17 17:59 01/03/17 18:00 Heparin Sodium (Porcine) (Heparin 5000 units/ml) 5,000 units EVERY 12 HOURS SUBQ 12/31/16 21:00 01/30/17 20:59 01/03/17 21:29 Insulin Aspart (NovoLOG) BEFORE MEALS AND HS SUBQ 01/01/17 11:30 01/31/17 11:29 01/03/17 21:29 Metoprolol Succinate (Toprol XL) 50 mg DAILY ORAL 01/01/17 09:00 01/31/17 08:59 01/03/17 09:29 Metronidazole 500 mg 500 mg EVERY 8 HOURS ORAL 12/31/16 18:30 01/07/17 18:29 01/03/17 21:23 Nitroglycerin 0.4 mg 0.4 mg Q5M X 3 DOSES PRN SL Prn Chest Pain 12/31/16 16:45 01/30/17 16:44 Ondansetron HCl (Zofran) 4 mg Q6H PRN IVP Nausea & Vomiting 12/31/16 16:45 01/30/17 16:44 Piperacillin Sod/ Tazobactam Sod/ Sodium Chloride (Zosyn/Sodium Chloride) 110 ml @ 27.5 mls/hr EVERY 8 HOURS IVPB 12/31/16 18:30 01/07/17 18:29 01/03/17 21:30 Polyethylene Glycol (Miralax) 17 gm HSPRN PRN ORAL Constipation 12/31/16 16:45 01/30/17 16:44 Promethazine HCl/ Codeine (Phenergan with Codeine) 5 ml Q4H PRN ORAL For Cough 12/31/16 16:45 01/30/17 16:44 Temazepam (Restoril) 15 mg HSPRN PRN ORAL Insomnia 12/31/16 16:45 01/07/17 16:44 CHRIS YEE Jan 03, 2017 22:47
[2017-01-04] VITALS: BP 130/82
[2017-01-04] MEDS: D5 1/2NS 1,000 ML IV SCH ×2 (02:00→15:14)
[2017-01-04 04:00] VITALS: BP 149/88
[2017-01-04] MEDS: Piperacillin/Tazobactam 3.375 GM in NS 110 ML IVPB SCH ×3 (05:47→21:15)
[2017-01-04] MEDS: metroNIDAZOLE 500mg tab ORAL SCH ×3 (05:47→21:15)
[2017-01-04] MEDS: NovoLOG Insulin Flexpen SUBQ SCH ×4 (05:51→21:20)
[2017-01-04] MEDS: Heparin 5000 units/ml inj SUBQ SCH ×2 (08:02→21:21)
[2017-01-04] MEDS: Aspirin EC 81mg tab ORAL SCH (08:12)
[2017-01-04 09:00] VITALS: BP 150/83
--- NOTE | 2017-01-04 09:24 | Infectious Diseases Prog Note ---
Assessment/Plan Assessment/Plan ASSESSMENT: 56 y/o male with: // Possible acute cholecystitis vs passed stone - surgery following - elevated LFTs, improved, (+) Sun's - HIDA: Negative hepatobiliary scan. Patent cystic duct and common bile duct - MRCP: No biliary ductal dilatation or evidence of choledocholithiasis. Abnormal moderate thickening of the gallbladder wall. Small stones versus sludge. - US: Thickening of the gallbladder wall. // Leukocytosis, mild - resolved, afebrile // Atypical chest pain, possibly biliary - trop(-) x1 - TTE: EF 60%, grade I diastolic dysfunction, trace valvular disease - h/o CAD SP CABG // ARF, probable CKD - stable // DM2 // NKDA // Full Code PLAN: - continue zosyn, flagyl d# . Ok to complete course with PO cipro + flagyl at discharge - f/u final cultures - surgery following - monitor CBC, temperatures - monitor CMP Subjective Allergies: Coded Allergies: No Known Allergies (Unverified , 09/03/15) Subjective remains afebrile. appears comfortable Objective Vital Signs Last 24 Hour Vital Signs Date Time Temp Pulse Resp B/P Pulse Ox O2 Delivery O2 Flow Rate FiO2 01/04/17 09:00 97.7 66 18 150/83 98 Room Air 01/04/17 09:00 70 145/80 01/04/17 04:00 97.2 70 19 149/88 98 Room Air 01/04/17 00:00 97.9 70 19 130/82 98 Room Air 01/03/17 21:22 155/89 01/03/17 20:00 97.9 76 20 155/89 96 Room Air 01/03/17 16:00 97.7 69 20 168/90 96 Room Air 01/03/17 12:00 98.3 70 18 152/88 97 Room Air 01/03/17 09:29 72 139/88 Height (Feet): 5 Height (Inches): 5.00 Weight (Pounds): 150 General Appearance: no acute distress Respiratory/Chest: no respiratory distress Cardiovascular: normal rate, regular rhythm Abdomen: normal bowel sounds, non distended Current Medications Medications (Trade) Dose Ordered Sig/Aleksandr Route PRN Reason Start Time Stop Time Status Last Admin Dose Admin Acetaminophen (Tylenol) 650 mg Q4H PRN ORAL fever 12/31/16 16:45 01/30/17 16:44 12/31/16 22:05 Acetaminophen/ Hydrocodone Bitart ([place] 5/325) 1 tab Q6H PRN ORAL PAIN SCALE 4-10 01/03/17 21:15 01/10/17 21:14 01/03/17 21:22 Al Hydroxide/Mg Hydroxide (Mylanta II) 30 ml Q6H PRN ORAL dyspepsia 12/31/16 16:45 01/30/17 16:44 Aspirin (Ecotrin) 81 mg DAILY ORAL 01/01/17 09:00 01/31/17 08:59 01/04/17 08:12 Atorvastatin Calcium (Lipitor) 10 mg QHS ORAL 12/31/16 22:00 01/30/17 21:59 01/03/17 21:22 Clonidine HCl (Catapres) 0.1 mg Q8H PRN ORAL if Systolic BP >150mmHg 01/01/17 18:30 01/31/17 18:29 01/03/17 21:22 Dextrose (Dextrose 50%) STAT PRN IV Hypoglycemia 01/01/17 07:15 01/31/17 07:14 Dextrose/Sodium Chloride (D5 0.45% NS) 1,000 ml @ 75 mls/hr [id number] IV 12/31/16 18:00 01/30/17 17:59 01/04/17 02:00 Diphenhydramine HCl (Benadryl) 25 mg Q6H PRN ORAL Itching/Pruritis 12/31/16 16:45 01/30/17 16:44 01/04/17 08:12 Gabapentin (Neurontin) 300 mg BID ORAL 01/03/17 18:00 02/02/17 17:59 01/04/17 08:12 Heparin Sodium (Porcine) (Heparin 5000 units/ml) 5,000 units EVERY 12 HOURS SUBQ 12/31/16 21:00 01/30/17 20:59 01/03/17 21:29 Insulin Aspart (NovoLOG) BEFORE MEALS AND HS SUBQ 01/01/17 11:30 01/31/17 11:29 01/04/17 05:51 Metoprolol Succinate (Toprol XL) 50 mg DAILY ORAL 01/01/17 09:00 01/31/17 08:59 01/04/17 09:00 Metronidazole 500 mg 500 mg EVERY 8 HOURS ORAL 12/31/16 18:30 01/07/17 18:29 01/04/17 05:47 Nitroglycerin 0.4 mg 0.4 mg Q5M X 3 DOSES PRN SL Prn Chest Pain 12/31/16 16:45 01/30/17 16:44 Ondansetron HCl (Zofran) 4 mg Q6H PRN IVP Nausea & Vomiting 12/31/16 16:45 01/30/17 16:44 Piperacillin Sod/ Tazobactam Sod/ Sodium Chloride (Zosyn/Sodium Chloride) 110 ml @ 27.5 mls/hr EVERY 8 HOURS IVPB 12/31/16 18:30 01/07/17 18:29 01/04/17 05:47 Polyethylene Glycol (Miralax) 17 gm HSPRN PRN ORAL Constipation 12/31/16 16:45 01/30/17 16:44 Promethazine HCl/ Codeine (Phenergan with Codeine) 5 ml Q4H PRN ORAL For Cough 12/31/16 16:45 01/30/17 16:44 Temazepam (Restoril) 15 mg HSPRN PRN ORAL Insomnia 12/31/16 16:45 01/07/17 16:44 ROBEL LOWERY 25, 2017 09:24
[2017-01-04 12:52] VITALS: BP 138/80
--- NOTE | 2017-01-04 13:54 | Nephrology Progress Note ---
Assessment/Plan Assessment 1.ARF 2.ATN 2.acute cholecystis was r/o by hida scan 3.sepsis 4.HTN Plan Plan 1hold lasix 2.monitoring electrolyte 3.avoid NSAID d/c Toradol 4.IVF 5.check in put and out put Subjective Constitutional: Reports: malaise, weakness HEENT: Reports: no symptoms Genitourinary: Reports: no symptoms Neurologic/Psychiatric: Reports: no symptoms Subjective alert and wake able to tolerate clear liquid diet Objective Objective Last 24 Hour Vital Signs Date Time Temp Pulse Resp B/P Pulse Ox O2 Delivery O2 Flow Rate FiO2 01/04/17 12:52 97.7 68 18 138/80 98 Room Air 01/04/17 09:15 97.7 01/04/17 09:00 97.7 66 18 150/83 98 Room Air 01/04/17 09:00 70 145/80 01/04/17 04:00 97.2 70 19 149/88 98 Room Air 01/04/17 00:00 97.9 70 19 130/82 98 Room Air 01/03/17 21:22 155/89 01/03/17 20:00 97.9 76 20 155/89 96 Room Air 01/03/17 16:00 97.7 69 20 168/90 96 Room Air Intake and Output 01/03/17 01/04/17 19:00 07:00 Intake Total 960 ml 375 ml Output Total 275 ml 550 ml Balance 685 ml -175 ml Intake Oral 360 ml IV Total 600 ml 375 ml Output Urine Total 275 ml 550 ml Height (Feet): 5 Height (Inches): 5.00 Weight (Pounds): 150 Objective HEAD AND NECK: No JVP. No LAD. No thyromegaly. Extraocular movements are intact. Pupils are reactive to light and accommodation. LUNGS: Clear to auscultation. CARDIAC: Regular rate and rhythm. S1-S2. No murmur. No rub. ABDOMEN: Soft. Mild right upper quadrant tenderness and guarding. No rebound. EXTREMITIES: No edema. No clubbing. No cyanosis. GERMÁN HERNANDEZ Jan 04, 2017 13:54
--- NOTE | 2017-01-04 14:34 | General Surgery Progress Note ---
General Surgery-Progress Note Subjective Symptoms: improved, pain absent, tolerating diet, voiding well, BM Objective Last 24 Hour Vital Signs Date Time Temp Pulse Resp B/P Pulse Ox O2 Delivery O2 Flow Rate FiO2 01/04/17 12:52 97.7 68 18 138/80 98 Room Air 01/04/17 09:15 97.7 01/04/17 09:00 97.7 66 18 150/83 98 Room Air 01/04/17 09:00 70 145/80 01/04/17 04:00 97.2 70 19 149/88 98 Room Air 01/04/17 00:00 97.9 70 19 130/82 98 Room Air 01/03/17 21:22 155/89 01/03/17 20:00 97.9 76 20 155/89 96 Room Air 01/03/17 16:00 97.7 69 20 168/90 96 Room Air I&O Intake and Output 01/03/17 01/04/17 19:00 07:00 Intake Total 960 ml 375 ml Output Total 275 ml 550 ml Balance 685 ml -175 ml Intake Oral 360 ml IV Total 600 ml 375 ml Output Urine Total 275 ml 550 ml Cardiovascular: RSR Respiratory: clear Abdomen: soft, non-tender, present bowel sounds Extremities: no edema, no tenderness Plan Problems: (1) Cholelithiasis Assessment & Plan: Some gallbladder thickening on ultrasound and MRI. HIDA okay. LFT's improved. Labs improving. Tolerating diet. Pain resolved. No n/ v/f/c. Improved. Advance diet as tolerated Repeat labs tomorrow AM Okay to d/c home from surgical standpoint on oral abx Can follow up in clinic in 2 weeks after d/c. Raul Coats Jan 04, 2017 14:34
[2017-01-04 16:00] VITALS: BP 167/91
[2017-01-04 20:00] VITALS: BP 153/88
--- NOTE | 2017-01-04 21:29 | Pulmonology Progress Note ---
Subjective Allergies: Coded Allergies: No Known Allergies (Unverified , 09/03/15) Objective Last 24 Hour Vital Signs Date Time Temp Pulse Resp B/P Pulse Ox O2 Delivery O2 Flow Rate FiO2 01/04/17 16:00 98.4 67 20 167/91 96 Room Air 01/04/17 12:52 97.7 68 18 138/80 98 Room Air 01/04/17 09:15 97.7 01/04/17 09:00 97.7 66 18 150/83 98 Room Air 01/04/17 09:00 70 145/80 01/04/17 04:00 97.2 70 19 149/88 98 Room Air 01/04/17 00:00 97.9 70 19 130/82 98 Room Air Intake and Output 01/03/17 01/04/17 19:00 07:00 Intake Total 960 ml 375 ml Output Total 275 ml 550 ml Balance 685 ml -175 ml Intake Oral 360 ml IV Total 600 ml 375 ml Output Urine Total 275 ml 550 ml Current Medications Medications (Trade) Dose Ordered Sig/Aleksandr Route PRN Reason Start Time Stop Time Status Last Admin Dose Admin Acetaminophen (Tylenol) 650 mg Q4H PRN ORAL fever 12/31/16 16:45 01/30/17 16:44 12/31/16 22:05 Acetaminophen/ Hydrocodone Bitart ([place] 5/325) 1 tab Q6H PRN ORAL PAIN SCALE 4-10 01/03/17 21:15 01/10/17 21:14 01/03/17 21:22 Al Hydroxide/Mg Hydroxide (Mylanta II) 30 ml Q6H PRN ORAL dyspepsia 12/31/16 16:45 01/30/17 16:44 Aspirin (Ecotrin) 81 mg DAILY ORAL 01/01/17 09:00 01/31/17 08:59 01/04/17 08:12 Atorvastatin Calcium (Lipitor) 10 mg QHS ORAL 12/31/16 22:00 01/30/17 21:59 01/04/17 21:15 Clonidine HCl (Catapres) 0.1 mg Q8H PRN ORAL if Systolic BP >150mmHg 01/01/17 18:30 01/31/17 18:29 01/03/17 21:22 Dextrose (Dextrose 50%) STAT PRN IV Hypoglycemia 01/01/17 07:15 01/31/17 07:14 Dextrose/Sodium Chloride (D5 0.45% NS) 1,000 ml @ 75 mls/hr [id number] IV 12/31/16 18:00 01/30/17 17:59 01/04/17 02:00 Diphenhydramine HCl (Benadryl) 25 mg Q6H PRN ORAL Itching/Pruritis 12/31/16 16:45 01/30/17 16:44 01/04/17 08:12 Gabapentin (Neurontin) 300 mg BID ORAL 01/03/17 18:00 02/02/17 17:59 01/04/17 17:43 Heparin Sodium (Porcine) (Heparin 5000 units/ml) 5,000 units EVERY 12 HOURS SUBQ 12/31/16 21:00 01/30/17 20:59 01/04/17 21:21 Insulin Aspart (NovoLOG) BEFORE MEALS AND HS SUBQ 01/01/17 11:30 01/31/17 11:29 01/04/17 21:20 Metoprolol Succinate (Toprol XL) 50 mg DAILY ORAL 01/01/17 09:00 01/31/17 08:59 01/04/17 09:00 Metronidazole 500 mg 500 mg EVERY 8 HOURS ORAL 12/31/16 18:30 01/07/17 18:29 01/04/17 21:15 Nitroglycerin 0.4 mg 0.4 mg Q5M X 3 DOSES PRN SL Prn Chest Pain 12/31/16 16:45 01/30/17 16:44 Ondansetron HCl (Zofran) 4 mg Q6H PRN IVP Nausea & Vomiting 12/31/16 16:45 01/30/17 16:44 Piperacillin Sod/ Tazobactam Sod/ Sodium Chloride (Zosyn/Sodium Chloride) 110 ml @ 27.5 mls/hr EVERY 8 HOURS IVPB 12/31/16 18:30 01/07/17 18:29 01/04/17 21:15 Polyethylene Glycol (Miralax) 17 gm HSPRN PRN ORAL Constipation 12/31/16 16:45 01/30/17 16:44 Promethazine HCl/ Codeine (Phenergan with Codeine) 5 ml Q4H PRN ORAL For Cough 12/31/16 16:45 01/30/17 16:44 Temazepam (Restoril) 15 mg HSPRN PRN ORAL Insomnia 12/31/16 16:45 01/07/17 16:44 CHRIS YEE Jan 04, 2017 21:29
[2017-01-05] VITALS: BP 141/79
[2017-01-05 04:00] VITALS: BP 153/88
[2017-01-05] MEDS: D5 1/2NS 1,000 ML IV SCH (05:29)
[2017-01-05] MEDS: Piperacillin/Tazobactam 3.375 GM in NS 110 ML IVPB SCH (05:53)
[2017-01-05] MEDS: metroNIDAZOLE 500mg tab ORAL SCH (05:57)
[2017-01-05] MEDS: NovoLOG Insulin Flexpen SUBQ SCH ×2 (06:54→11:54)
[2017-01-05 08:00] VITALS: BP 141/81
[2017-01-05] MEDS: Aspirin EC 81mg tab ORAL SCH (08:54)
[2017-01-05 08:55] VITALS: BP 141/78
[2017-01-05] MEDS: Heparin 5000 units/ml inj SUBQ SCH (08:59)
--- NOTE | 2017-01-05 09:31 | Infectious Diseases Prog Note ---
Assessment/Plan Assessment/Plan ASSESSMENT: 56 y/o male with: // Possible acute cholecystitis vs passed stone - GI, surgery following - elevated LFTs, improved, (+) Sun's - HIDA: Negative hepatobiliary scan. Patent cystic duct and common bile duct - MRCP: No biliary ductal dilatation or evidence of choledocholithiasis. Abnormal moderate thickening of the gallbladder wall. Small stones versus sludge. - US: Thickening of the gallbladder wall. // Leukocytosis, mild - resolved, afebrile // Atypical chest pain, possibly biliary - trop(-) x1 - TTE: EF 60%, grade I diastolic dysfunction, trace valvular disease - h/o CAD SP CABG // ARF, probable CKD - stable // DM2 // NKDA // Full Code PLAN: - continue zosyn, flagyl d# / . Ok to complete course with PO cipro + flagyl at discharge - f/u final cultures - GI, surgery following - monitor CBC, temperatures - monitor CMP Subjective Allergies: Coded Allergies: No Known Allergies (Unverified , 09/03/15) Subjective remains afebrile. appears comfortable Objective Vital Signs Last 24 Hour Vital Signs Date Time Temp Pulse Resp B/P Pulse Ox O2 Delivery O2 Flow Rate FiO2 01/05/17 08:55 67 141/78 01/05/17 04:00 97.7 73 16 153/88 98 Room Air 01/05/17 00:00 97.9 64 18 141/79 98 Room Air 01/04/17 23:05 153/88 01/04/17 20:00 97.9 72 20 153/88 96 Room Air 01/04/17 16:00 98.4 67 20 167/91 96 Room Air 01/04/17 12:52 97.7 68 18 138/80 98 Room Air Height (Feet): 5 Height (Inches): 5.00 Weight (Pounds): 150 General Appearance: no acute distress Respiratory/Chest: no respiratory distress Cardiovascular: normal rate, regular rhythm Abdomen: normal bowel sounds, soft, non tender, non distended Current Medications Medications (Trade) Dose Ordered Sig/Aleksandr Route PRN Reason Start Time Stop Time Status Last Admin Dose Admin Acetaminophen (Tylenol) 650 mg Q4H PRN ORAL fever 12/31/16 16:45 01/30/17 16:44 12/31/16 22:05 Acetaminophen/ Hydrocodone Bitart ([place] 5/325) 1 tab Q6H PRN ORAL PAIN SCALE 4-10 01/03/17 21:15 01/10/17 21:14 01/03/17 21:22 Al Hydroxide/Mg Hydroxide (Mylanta II) 30 ml Q6H PRN ORAL dyspepsia 12/31/16 16:45 01/30/17 16:44 Aspirin (Ecotrin) 81 mg DAILY ORAL 01/01/17 09:00 01/31/17 08:59 01/05/17 08:54 Atorvastatin Calcium (Lipitor) 10 mg QHS ORAL 12/31/16 22:00 01/30/17 21:59 01/04/17 21:15 Clonidine HCl (Catapres) 0.1 mg Q8H PRN ORAL if Systolic BP >150mmHg 01/01/17 18:30 01/31/17 18:29 01/04/17 23:05 Dextrose (Dextrose 50%) STAT PRN IV Hypoglycemia 01/01/17 07:15 01/31/17 07:14 Dextrose/Sodium Chloride (D5 0.45% NS) 1,000 ml @ 75 mls/hr [id number] IV 12/31/16 18:00 01/30/17 17:59 01/05/17 05:29 Diphenhydramine HCl (Benadryl) 25 mg Q6H PRN ORAL Itching/Pruritis 12/31/16 16:45 01/30/17 16:44 01/04/17 08:12 Gabapentin (Neurontin) 300 mg BID ORAL 01/03/17 18:00 02/02/17 17:59 01/04/17 17:43 Heparin Sodium (Porcine) (Heparin 5000 units/ml) 5,000 units EVERY 12 HOURS SUBQ 12/31/16 21:00 01/30/17 20:59 01/05/17 08:59 Insulin Aspart (NovoLOG) BEFORE MEALS AND HS SUBQ 01/01/17 11:30 01/31/17 11:29 01/05/17 06:54 Metoprolol Succinate (Toprol XL) 50 mg DAILY ORAL 01/01/17 09:00 01/31/17 08:59 01/05/17 08:55 Metronidazole 500 mg 500 mg EVERY 8 HOURS ORAL 12/31/16 18:30 01/07/17 18:29 01/05/17 05:57 Nitroglycerin 0.4 mg 0.4 mg Q5M X 3 DOSES PRN SL Prn Chest Pain 12/31/16 16:45 01/30/17 16:44 Ondansetron HCl (Zofran) 4 mg Q6H PRN IVP Nausea & Vomiting 12/31/16 16:45 01/30/17 16:44 Piperacillin Sod/ Tazobactam Sod/ Sodium Chloride (Zosyn/Sodium Chloride) 110 ml @ 27.5 mls/hr EVERY 8 HOURS IVPB 12/31/16 18:30 01/07/17 18:29 01/05/17 05:53 Polyethylene Glycol (Miralax) 17 gm HSPRN PRN ORAL Constipation 12/31/16 16:45 01/30/17 16:44 Promethazine HCl/ Codeine (Phenergan with Codeine) 5 ml Q4H PRN ORAL For Cough 12/31/16 16:45 01/30/17 16:44 Temazepam (Restoril) 15 mg HSPRN PRN ORAL Insomnia 12/31/16 16:45 01/07/17 16:44 ROBEL LOWERY Jan 05, 2017 09:31
[2017-01-05] MEDS ORDERED: CIPRO500 MG/51 PO (13:13)
--- NOTE | 2017-01-05 13:14 | Pulmonology Progress Note ---
Subjective Allergies: Coded Allergies: No Known Allergies (Unverified , 09/03/15) Objective Last 24 Hour Vital Signs Date Time Temp Pulse Resp B/P Pulse Ox O2 Delivery O2 Flow Rate FiO2 01/05/17 08:55 67 141/78 01/05/17 08:00 98.1 68 20 141/81 98 Room Air 01/05/17 04:00 97.7 73 16 153/88 98 Room Air 01/05/17 00:00 97.9 64 18 141/79 98 Room Air 01/04/17 23:05 153/88 01/04/17 20:00 97.9 72 20 153/88 96 Room Air 01/04/17 16:00 98.4 67 20 167/91 96 Room Air Intake and Output 01/04/17 01/05/17 19:00 07:00 Intake Total 1010 ml 667.5 ml Output Total 700 ml Balance 1010 ml -32.5 ml Intake Oral 560 ml 300 ml IV Total 450 ml 367.5 ml Output Urine Total 700 ml # Voids 5 # Bowel Movements 1 Current Medications Medications (Trade) Dose Ordered Sig/Aleksandr Route PRN Reason Start Time Stop Time Status Last Admin Dose Admin Acetaminophen (Tylenol) 650 mg Q4H PRN ORAL fever 12/31/16 16:45 01/30/17 16:44 12/31/16 22:05 Acetaminophen/ Hydrocodone Bitart ([place] 5/325) 1 tab Q6H PRN ORAL PAIN SCALE 4-10 01/03/17 21:15 01/10/17 21:14 01/03/17 21:22 Al Hydroxide/Mg Hydroxide (Mylanta II) 30 ml Q6H PRN ORAL dyspepsia 12/31/16 16:45 01/30/17 16:44 Aspirin (Ecotrin) 81 mg DAILY ORAL 01/01/17 09:00 01/31/17 08:59 01/05/17 08:54 Atorvastatin Calcium (Lipitor) 10 mg QHS ORAL 12/31/16 22:00 01/30/17 21:59 01/04/17 21:15 Clonidine HCl (Catapres) 0.1 mg Q8H PRN ORAL if Systolic BP >150mmHg 01/01/17 18:30 01/31/17 18:29 01/04/17 23:05 Dextrose (Dextrose 50%) STAT PRN IV Hypoglycemia 01/01/17 07:15 01/31/17 07:14 Dextrose/Sodium Chloride (D5 0.45% NS) 1,000 ml @ 75 mls/hr [id number] IV 12/31/16 18:00 01/30/17 17:59 01/05/17 05:29 Diphenhydramine HCl (Benadryl) 25 mg Q6H PRN ORAL Itching/Pruritis 12/31/16 16:45 01/30/17 16:44 01/04/17 08:12 Gabapentin (Neurontin) 300 mg BID ORAL 01/03/17 18:00 02/02/17 17:59 01/04/17 17:43 Heparin Sodium (Porcine) (Heparin 5000 units/ml) 5,000 units EVERY 12 HOURS SUBQ 12/31/16 21:00 01/30/17 20:59 01/05/17 08:59 Insulin Aspart (NovoLOG) BEFORE MEALS AND HS SUBQ 01/01/17 11:30 01/31/17 11:29 01/05/17 11:54 Metoprolol Succinate (Toprol XL) 50 mg DAILY ORAL 01/01/17 09:00 01/31/17 08:59 01/05/17 08:55 Metronidazole 500 mg 500 mg EVERY 8 HOURS ORAL 12/31/16 18:30 01/07/17 18:29 01/05/17 05:57 Nitroglycerin 0.4 mg 0.4 mg Q5M X 3 DOSES PRN SL Prn Chest Pain 12/31/16 16:45 01/30/17 16:44 Ondansetron HCl (Zofran) 4 mg Q6H PRN IVP Nausea & Vomiting 12/31/16 16:45 01/30/17 16:44 Piperacillin Sod/ Tazobactam Sod/ Sodium Chloride (Zosyn/Sodium Chloride) 110 ml @ 27.5 mls/hr EVERY 8 HOURS IVPB 12/31/16 18:30 01/07/17 18:29 01/05/17 05:53 Polyethylene Glycol (Miralax) 17 gm HSPRN PRN ORAL Constipation 12/31/16 16:45 01/30/17 16:44 Promethazine HCl/ Codeine (Phenergan with Codeine) 5 ml Q4H PRN ORAL For Cough 12/31/16 16:45 01/30/17 16:44 Temazepam (Restoril) 15 mg HSPRN PRN ORAL Insomnia 12/31/16 16:45 01/07/17 16:44 CHRIS YEE Jan 05, 2017 13:14
--- NOTE | 2017-01-05 18:28 | Cardiology Report ---
APPROVED REPORT EKG Measurement Heart [id number] IL [id number] Normal sinus rhythm Rightward axis Possible Anterior infarct, age undetermined Abnormal ECG
--- NOTE | 2017-01-07 11:46 | Discharge Summary ---
Discharge Summary Hospital Course Date of Admission Dec 31, 2016 at 12:10 Date of Discharge Jan 05, 2017 at 13:32 Admitting Diagnosis acute cholecystitis OBED Schilling is a 56 year old male who was admitted on Dec 31, 2016 at 12:10 for Acute Cholecystitis Hospital Course dc summary # [id number] Discharge Medications New Medications: Ciprofloxacin (Cipro) 500 Mg/5 Ml Danielle.mc.rec 500 MG PO EVERY 12 HOURS for 5 Days, CAP Continued Medications: Gabapentin* (Gabapentin*) 300 Mg Capsule 300 MG ORAL BID, CAP Insulin Glargine (Lantus) 100 Unit/1 Ml Insuln.pen 20 UNITS SUBQ EVERY MORNING Lisinopril (Lisinopril*) 20 Mg Tablet 20 MG ORAL DAILY, TAB Metronidazole* (Flagyl*) 500 Mg Tablet 500 MG ORAL EVERY 8 HOURS for 10 Days, TAB Omeprazole (Omeprazole) 20 Mg Capsule.dr 20 MG ORAL DAILY, CAP Discharge Condition Upon Discharge: stable Discharge Disposition Patient was discharged to Home (01) Discharge Diagnoses: Discharge Instructions Discharge Instructions Special Instructions I have been assigned to complete a D/C Summary on this account. I was not involved in the patient management Millie Romo NP ([place]) Jan 07, 2017 11:46
--- NOTE | 2017-01-08 06:49 | Discharge Summary 2 SIG ---
DATE OF ADMISSION: 12/31/2016 DATE OF DISCHARGE: 01/05/2017 REASON FOR ADMISSION: 56-year-old male presented to the emergency room with complaints of right-sided pleuritic chest pain worse with breathing, associated with cough and subjective chills. Pain only on breathing and not at rest, it did not radiate. The patient 's past medical history consistent with coronary artery disease, CHF, CABG ( 2 years ago) , and diabetes. Workup in the emergency room revealed elevated lipase,bilirubin, LFT. Leukocytosis - 12. Right upper quadrant pain on clinical examination and epigastric pain, but not the chest pain , no pleurisy. The right upper quadrant tender to palpation with guarding. Abdominal ultrasound revealed gallbladder wall thickening, nonspecific finding. The patient was NPO in the emergency room. Analgesia provided. The patient was admitted for further management. ADMITTING DIAGNOSES: 1. Right upper quadrant pain. 2. Elevated transaminase. HOSPITAL STAY: The patient was admitted to the hospital. The patient was started on the IV fluids. Initially NPO. GI surgery and ID consults were requested. ID started the patient on empiric antibiotics. Leukocytosis resolved. GI recommended to do MRCP, since abdominal ultrasound revealed nonspecific findings. Subsequently, the patient undergone MRCP, which revealed no biliary ductal dilatation and no evidence of choledocholithiasis. Abnormal moderate thickening of the gallbladder wall. Small stones versus sludge. Trace bilateral pleural effusion. In the meantime, LFT started to come down. Surgeon seen the patient and ordered HIDA scan. HIDA scan was negative and revealed patent cystic duct and patent common bile duct. Therefore no need for surgical interventions. Surgeon advised to continue medical management with IV antibiotics. Surgeon started the patient on liquid diet. Diet was advanced as tolerated. Antiemetic provided as needed. Patient was able to tolerate diet. Per gastrointestinal opinion, the patient likely passed stone,therefore imaging was negative. LFT and bilirubin were trending down. The patient with a history of coronary artery disease, status post coronary artery bypass graft. Troponin was negative. The chest pain atypical. Echocardiogram revealed preserved ejection fraction of 60% and right ventricular systolic pressure of 18. ID recommended to complete empiric course with Cipro and Flagyl at discharge. Prescription was provided. Sputum culture was positive with +1 Pseudomonas likely contamination. Water Use Inspector followed. Creatinine was worsening to 3.1. Diuretic stopped. Toradol discontinued. Recommended to avoid nephrotoxics. Electrolytes were followed clsoely and replaced as needed. Renal parameters were monitored, Blood sugar was managed with sliding scale of insulin, stable. [id number], not at goal, Patient will need further optimization of antigenemic regimen as outpatient. The patient was stable for discharge. DISCHARGE DIAGNOSES: 1. Cholelithiasis. 2. Right upper quadrant pain. 3. Elevated transaminase. 4. Diabetes mellitus 5. Acute tubular necrosis/acute renal failure DISCHARGE MEDICATIONS: See medication reconciliation. DISCHARGE INSTRUCTIONS: The patient was discharged home. Follow up with the primary medical doctor. Closely monitor renal parameters and liver enzymes. Aleyda Osuna M.D. I have been assigned to dictate discharge summary on this account and I was not involved in the patient's management. Millie Romo ([facility]: SOULEYMANE JOB#: [id number] CC: SARKIS
== END 2017-01-05 13:32 | disposition home or self-care (01) ==
LOC: EDBD 11:09 → EMR 11:15 → 3E 12:10 → EDBEDREQ 12:48 → EDBEDREQSVC 12:54 → EDBEDREQ 12:54 → 3E 20:00
DX: K80.20 Calculus of gallbladder without cholecystitis without obstruction (principal); N17.0 Acute kidney failure with tubular necrosis; N18.9 Chronic kidney disease, unspecified; I25.10 Atherosclerotic heart disease of native coronary artery without angina pectoris; I50.9 Heart failure, unspecified; I13.0 Hypertensive heart and chronic kidney disease with heart failure and stage 1 through stage 4 chronic kidney disease, or unspecified chronic kidney disease; E11.22 Type 2 diabetes mellitus with diabetic chronic kidney disease; D64.9 Anemia, unspecified; I42.9 Cardiomyopathy, unspecified; Z79.4 Long term (current) use of insulin; Z79.82 Long term (current) use of aspirin; Z95.1 Presence of aortocoronary bypass graft
CPT/HCPCS: 36415; 71010; 74181; 76700; 78266; 80053; 81001; 82043; 82044; 82150; 82248; 82436; 82533; 82550; 82553; 82570; 82962; 83036; 83690; 83735; 83880; 83930; 83935; 84100; 84133; 84300; 84439; 84443; 84484; 84550; 85025; 85730; 87070; 87181; 87205; 89050; 93005; 93306; J1815; J2405

== ENCOUNTER 2017-03-03 12:10 | Emergency (ER) | payer MEDICAID, OTHER ==
[~2017-03-03] VITALS: Ht 160 cm; Wt 72.6 kg
[~2017-03-03 12:10] MED LIST changes: +CIPRO500 MG/51 PO; +DOCUSATE SODIU100 MG ORAL; +FERROUS SULFAT325 MG ORAL; +FLAGYL500 MG ORAL; +FUROSEMIDE40 MG ORAL; +GABAPENTIN300 MG ORAL; +LANTUS SOL100 UNIT/1 SUBQ; +LISINOPRIL20 MG ORAL; +METOPROLOL SUCC50 MG ORAL; +OMEPRAZOLE20 M2 ORAL; +PRED FORTE1 ML RIGHT EYE; +SPIRONOLACTONE25 MG ORAL; +TYLENOL325 MG ORAL
[2017-03-03 12:30] VITALS: BP 156/88
[2017-03-03] MEDS ORDERED: fentaNYL 100 mcg/2 mL IV ONE (12:30)
--- NOTE | 2017-03-03 13:09 | Emergency Room Report ---
History of Present Illness General Chief Complaint: Abdominal Pain Source: Patient, Medical Record Present Illness HPI [id number] BIBEMS for RUQ pain. Started this morning after glass of milk. No assoc fever/chills, nausea/vomiting, diarrhea. Daughter states he had "nuclear scan" last week but they dont have result. Denies urinary complaints. Was seen here recently for right sided pleuritic chest pain. History of CHF, CAD, CABG, DM. Abs sono showed cholelithiasis. MRCP was unremarkable. HIDA scan was negative. ECHo showed EF60% Allergies: Coded Allergies: No Known Allergies (Unverified , 09/03/15) Patient History Past Medical History: CAD, CHF Past Surgical History: CABG Pertinent Family History: none Social History: Denies: alcohol use, drug use, smoking Immunizations: UTD Reviewed Nursing Documentation: PMH: Agreed, PSxH: Agreed Nursing Documentation-PMH Past Medical History: No History, Except For Hx Cardiac Problems: Yes - CABG 08/31/2015 Hx Hypertension: Yes Hx Diabetes: Yes Hx Cancer: No Hx Gastrointestinal Problems: No Hx Neurological Problems: No Review of Systems All Other Systems: negative except mentioned in HPI Physical Exam Vital Signs Date Time Temp Pulse Resp B/P Pulse Ox O2 Delivery O2 Flow Rate FiO2 03/03/17 12:10 98.1 78 18 153/96 98 Room Air Sp02 EP Interpretation: reviewed, abnormal General Appearance: normal inspection, well appearing, no apparent distress, alert, GCS 15, non-toxic Head: normocephalic, atraumatic Eyes: bilateral eye EOMI, bilateral eye PERRL ENT: normal ENT inspection, hearing grossly normal, normal voice Neck: normal inspection, full range of motion, supple, no bony tend Respiratory: normal inspection, lungs clear, normal breath sounds, no respiratory distress, no retraction, no wheezing Cardiovascular #1: regular rate, rhythm, no edema Gastrointestinal: normal inspection, normal bowel sounds, soft, no guarding, no hernia, other - RUQ mild ttp Genitourinary: no CVA tenderness Musculoskeletal: normal inspection, back normal, normal range of motion, Oanh' s Sign negative Neurologic: normal inspection, alert, oriented x3, responsive, apartment groundskeeper III-XII nml as tested, motor strength/tone normal, speech normal Psychiatric: normal inspection, judgement/insight normal, mood/affect normal Skin: normal inspection, normal color, no rash Medical Decision Making Diagnostic Impression: Primary Impression: Abdominal pain Qualified Codes: R10.84 - Generalized abdominal pain Additional Impressions: Acute pancreatitis Qualified Codes: K85.90 - Acute pancreatitis without necrosis or infection, unspecified LFTs abnormal ER Course Abd pain - VSS. Afebrile. - RUQ/epigastric. No rebound or guarding - No stones on followup sono today - Labs: LFTs and bili trending upwards again compared to December labs. Lipase acutely elevated, was normal in December. - Patient hasnt given urine yet. - Possible pancreatitis vs downstream obstructed stone although 2 months ago had normal MRCP, ABd MRI, and HIDA scan. - Spoke with Dr Gabriel from outside hospital, requesting transfer. Patient is stable for transfer for med/surg admission. - Endorsed to Dr Gabriel at 220pm. I offered to do CTAP here but Dr Gabriel prefers to do at her institution. EKG Diagnostic Results Rate: normal Rhythm: NSR ST Segments: no acute changes ASA given to the pt in ED: No Rhythm Strip Diag. Results EP Interpretation: yes Rate: 85 Rhythm: NSR, no PVC's, no ectopy Last Vital Signs Date Time Temp Pulse Resp B/P Pulse Ox O2 Delivery O2 Flow Rate FiO2 03/03/17 12:10 98.1 78 18 153/96 98 Room Air Status: improved Disposition: ADMITTED INPATIENT Condition: Serious Referrals: EMPLOYEE [facility] [place] [facility] GARCIA (PCP) NOEMY DESAI M.D. March 03, 2017 13:09
[2017-03-03 13:25] LABS: BASOPHILS % (AUTO) 1.1 % (0.0-2.0); EOSINOPHILS % (AUTO) 0.5 % (0.0-3.0); LYMPHOCYTES % (AUTO) 17.5 % (20.0-45.0); MEAN CORPUSCULAR HEMOGLOBIN 30.1 PG (27.0-31.0); MEAN CORPUSCULAR HGB CONC 33.7 G/DL (32.0-36.0); MEAN CORPUSCULAR VOLUME 89 FL (80-99); MEAN PLATELET VOLUME 5.3 FL (6.5-10.1); MONOCYTES % (AUTO) 9.6 % (1.0-10.0); NEUTROPHILS % (AUTO) 71.3 % (45.0-75.0); PLATELET COUNT 179 K/UL (150-450); RED BLOOD COUNT 4.38 M/UL (4.70-6.10); RED CELL DISTRIBUTION WIDTH 12.2 % (11.6-14.8); WHITE BLOOD COUNT 8.3 K/UL (4.8-10.8)
[2017-03-03 13:44] LABS: ALBUMIN/GLOBULIN RATIO 1.2 (1.0-2.7); CALCIUM 9.5 mg/dL (8.6-10.2); CREATININE 2.3 mg/dL (0.7-1.2); GLOMERULAR FILTRATION RATE 29.6 mL/min (>60); POTASSIUM 4.9 mEQ/L (3.4-4.9); TOTAL PROTEIN 7.2 g/dL (6.6-8.7)
[2017-03-03 13:46] LABS: TROPONIN I < 0.30 ng/mL (<=0.30)
[2017-03-03 15:00] VITALS: BP 145/86
[2017-03-03 16:13] LABS: APPEARANCE,URINE CLEAR; KETONES,URINE NEGATIVE (NEGATIVE); LEUKOCYTE ESTERASE ,URINE NEGATIVE (NEGATIVE); NITRITE,URINE NEGATIVE (NEGATIVE); PH,URINE 5 (4.5-8.0); PROTEIN,URINE 3+ (NEGATIVE); UROBILINOGEN,URINE NORMAL MG/DL (0.0-1.0)
[2017-03-03 16:18] LABS: AMORPHOUS SEDIMENT,UR FEW /LPF; BACTERIA,URINE FEW /HPF; WBC,URINE 0-2 /HPF (0 - 0)
[2017-03-03 16:46] VITALS: BP 145/86
--- NOTE | 2017-03-04 09:15 | Diagnostic Imaging Report ---
Indication: PAIN right upper quadrant pain Technique: Baum-scale and duplex images of the upper abdomen were obtained Comparison: 12/31/2016 Findings: Gallbladder demonstrates sludge and nonmobile stones. No gallbladder wall thickening or pericholecystic fluid Sonographic Sun's sign is negative. Common bile duct measures 8 mm in diameter. No intrahepatic biliary ductal dilatation. Liver demonstrates borderline increased echogenicity, no focal abnormality. Portal vein and hepatic veins are patent. Pancreas is unremarkable. Spleen is unremarkable. Left kidney measures 10.5 cm in length. Right kidney measures 10.2 cm length. Both kidneys demonstrate normal echogenicity. There is no hydronephrosis. Right kidney demonstrates a 5 mm hyperechoic lesion in the renal sinus. Non-aneurysmal abdominal aorta . Compared to the prior exam, previously demonstrated gallbladder wall thickening is no longer evident. The common bile duct dilatation is a new finding Impression: Cholelithiasis. There is also gallbladder sludge Mildly dilated common bile duct. Downstream obstruction not completely excludable. Correlate with liver function tests, consider MRCP for further evaluation if clinically indicated Mild increased hepatic echogenicity, mild fatty change not excludable.
--- NOTE | 2017-03-04 18:36 | Cardiology Report ---
APPROVED REPORT EKG Measurement Heart [id number] [place] [id number] Normal sinus rhythm Rightward axis Septal infarct, age undetermined Abnormal ECG
== END 2017-03-03 17:00 | disposition left against medical advice (07) ==
LOC: EDBD 12:10 → EMR 12:21 → EDBEDREQ 14:17 → EMR 17:00
DX: R10.84 Generalized abdominal pain (principal); K85.90 Acute pancreatitis without necrosis or infection, unspecified; R94.5 Abnormal results of liver function studies; I25.10 Atherosclerotic heart disease of native coronary artery without angina pectoris; Z95.1 Presence of aortocoronary bypass graft; E11.9 Type 2 diabetes mellitus without complications; I10 Essential (primary) hypertension; I50.9 Heart failure, unspecified
CPT/HCPCS: 36415; 76700; 80053; 81003; 82248; 82962; 83605; 83690; 84484; 85025; 93005; 96374; 96375; 99284; J2405; J3010